=== PATIENT | female | born 1935 | race Caucasian/White ===

== ENCOUNTER 2018-10-04 12:19 | Inpatient (IN) | payer MEDICARE ==
--- NOTE | 2018-10-04 12:49 | ED Physician Chart ---
ED Chief Complaint/HPI - Patient Information Date Seen:: 10/04/18 Time Seen:: 12:30 Chief Complaint:: Cough History of Present Illness:: onset x 3 days of fever, cough, and congestion; no report of trauma, H/As, neck pain, C/P, SOB, Abd. Pain, or urinary s/s Historian:: Patient, Family Member Review:: Nurse's Note Reviewed, Old Chart Reviewed ED Review of Systems - Review of Systems General/Constitutional: Fever, No chills, No weight loss, No weakness, No diaphoresis, No edema, No loss of appetite Skin: No skin lesions, No rash, No bruising Head: No headache, No light-headedness Eyes: No loss of vision, No pain, No diplopia ENT: No earache, No nasal drainage, No sore throat, No tinnitus Neck: No neck pain, No swelling, No thyromegaly, No stiffness, No mass noted Cardio Vascular: No chest pain, No palpitations, No PND, No orthopnea, No edema Pulmonary: No SOB, Cough, No sputum, No wheezing GI: No nausea, No vomiting, No diarrhea, No pain, No melena, No hematochezia, No constipation, No hematemesis G/U: No dysuria, No frequency, No hematuria, No nacturia Crab Steamer: No vaginal discharge, No abnormal vaginal bleed, No contraction Musculoskeletal: No bone or joint pain, No back pain, No muscle pain Endocrine: No polyuria, No polydipsia Psychiatric: No prior psych history, No depression, No anxiety, No suicidal ideation, No homicidal ideation, No auditory hallucination, No visual hallucination Hematopoietic: No bruising, No lymphadenopathy Allergic/Immuno: No urticaria, No angioedema Neurological: No syncope, No focal symptoms, No weakness, No paresthesia, No headache, No seizure, No dizziness, No confusion, No vertigo ED Past Medical History - Past Medical History Obtainable: Yes Past Medical History: HTN, CHF, Asthma/COPD, Dyslipidemia Family History: HTN Social History: Non Smoker, No Alcohol, No Drug Use, Surgical History: Appendectomy, Hysterectomy Psychiatricy History: None Medication: Reviewed Family Medical History - Family Member Mother History Unknown: Yes ED Physical Exam - Physical Examination General/Constitutional: Awake, Well-developed, well-nourished, Alert, No distress, GCS 15, Non-toxic appearing, Ambulatory Head: Atraumatic Eyes: Lids, conjuctiva normal, PERRL, EOMI Skin: Nl inspection, No rash, No skin lesions, No ecchymosis, Well hydrated, No lymphadenopathy ENMT: External ears, nose nl, TM canals nl, Nasal exam nl, Lips, teeth, gums nl , Oropharynx nl, Tonsils nl Neck: Nontender, Full ROM w/o pain, No JVD, No nuchal rigidity, No bruit, No mass, No stridor Respiratory: Nl effort/Exclusion, Clear to Auscultation, No Wheeze/Rhonchi/Rales Cardio Vascular: RRR, No murmur, gallop, rubs, NL S1 S2, Carotid/Femoral/Distal pulses equal bilaterally GI: No tenderness/rebounding/guarding, No organomegaly, No hernia, Normal BS's, Nondistended, No mass/bruits, No McBurney tenderness : No CVA tenderness Extremities: No tenderness or effusion, Full ROM, normal strength in all extremities, No edema, Normal digits & nails Neuro/Psych: Alert/oriented, DTR's symmetric, Normal sensory exam, Normal motor strength, Judgement/insight normal, Mood normal, Normal gait, No focal deficits Misc: Normal back, No paraspinal tenderness ED Labs/Radiology/EKG Results - Lab Results Comments:: Reviewed - Radiology Results Comments:: CXR: + LLL Infiltrate; COPD - EKG Interpretations EKG Time:: 13:00 Rate & Rhythm: 108; ST Comments:: non-specific st-t changes ED Septic Shock - . Is Septic Shock (SBP<90, OR Lactate>4 mmol\L) present?: No ED Reassessment (Disposition) - Reassessment Reassessment Condition:: Improved - Diagnosis Diagnosis:: Cough; PNA; Tachycardia; Dehydration; Hyponatremia; HTN - Aftercare/Follow up Instructions Aftercare/Follow-Up Instructions:: Counseled pt regarding lab results/diagnosis & need follow up, Counseled pt & family regarding lab results/diagnosis & need follow up - Patient Disposition Discharge/Transfer:: Acute Care w/in this hosp Accepting Physician:: Dr. Friedman Time Called:: 1415 Time Responded:: 14:15 Admitted to:: Telemetry Spoke to:: Dr. Friedman Admitting Medical Physician:: Dr. Friedman Condition at Disposition:: Stable, Improved
[2018-10-04] MEDS ORDERED: Levofloxacin 500mg/100mL 500 MG/100 ML BAG IV ONE ×2 (12:53→13:01)
--- NOTE | 2018-10-04 13:09 | Diagnostic Imaging Report ---
Portable chest x-ray HISTORY: Pain The overall heart size appears normal. Atherosclerotic calcification seen in the aorta. Allowing for a poor inspiration, no acute focal pulmonary processes are seen. No hilar or mediastinal abnormalities. There is questionable deformity involving the anterior lateral aspect of the left seventh rib. Dedicated left rib radiographs provide additional detail. IMPRESSION: 1. Allowing for a poor inspiration, no acute focal pulmonary processes 2. Atherosclerotic vascular changes 3. Questionable deformity involving the anterior lateral aspect of left seventh rib. Dedicated rib radiographs would provide additional detail.
[2018-10-04 13:17] LABS: % EOSINOPHILS 1.7 % (0.0-5.0); % LYMPHOCYTES 21.6 % (20.0-50.0); % MONOCYTES 3.2 % (2.0-10.0); % NEUTROPHILS 72.5 % (40.0-80.0); BASOPHILE ABSOLUTE 0.1 Th/cumm (0-0.2); EOSINOPHILE ABSOLUTE 0.2 Th/cmm (0.1-0.4); HEMOGLOBIN 13.4 gm/dL (12-16); LYMPHOCYTE ABSOLUTE 2.3 Th/cmm (1.5-3.0); MEAN CORPUSCULAR HEMOGLOBIN 28.1 pg (27.0-31.0); MEAN CORPUSCULAR HGB CONC 32.7 pg (28.0-36.0); MEAN PLATELET VOLUME 7.3 fl; MONOCYTE ABSOLUTE 0.3 Th/cmm (0.3-1.0); NEUTROPHILE ABSOLUTE 7.6 Th/cmm (1.8-8.0); PLATELET COUNT 395 Th/cmm (150-400); RED BLOOD COUNT 4.77 Mil/cmm (3.80-5.20); RED CELL DISTRIBUTION WIDTH 14.5 % (11.5-20.0); WHITE BLOOD COUNT 10.5 Th/cmm (4.8-10.8)
[2018-10-04 13:30] LABS: INR 0.94 (0.5-1.4); PROTHROMBIN TIME (TEST) 9.8 SECONDS (9.5-11.5)
[2018-10-04 13:31] LABS: ALB/GLOB RATIO 1.1 (1.0-1.8); ALBUMIN 3.8 gm/dL (3.7-5.3); ALKALINE PHOSPHATASE 63 U/L (34-104); ANION GAP 12.7 (7.0-16.0); BILIRUBIN,TOTAL 0.4 mg/dL (0.3-1.0); BUN - UREA NITROGEN 13 mg/dL (7-25); CALCIUM SERUM 9.9 mg/dL (8.6-10.3); CARBON DIOXIDE 25.4 mEq/L (21.0-31.0); CHLORIDE 98 mEq/L (98-107); CREATININE - SERUM 0.7 mg/dL (0.6-1.2); CREATININE KINASE 26 U/L (30-223); GLUCOSE 123 mg/dL (70-105); POTASSIUM SERUM 4.1 mEq/L (3.5-5.1); SGOT 14 U/L (13-39); SGPT/ALT 12 U/L (7-52); SODIUM SERUM 132 mEq/L (136-145); TOTAL PROTEIN,SERUM 7.2 gm/dL (6.0-8.3)
[2018-10-04 13:32] LABS: TROP I 0.01 ng/mL (0.01-0.05)
[2018-10-04] MEDS: D5-0.9%NS 1,000 ML IV SCH (17:49)
[2018-10-04] MEDS: cefTRIAXone 1 GM in Sodium Chloride 0.9% 50 ML IV SCH (17:49)
[2018-10-04] MEDS: Azithromycin 250 MG in Sodium Chloride 0.9% 250 ML IV SCH (19:05)
[2018-10-05 05:26] LABS: EOSINOPHILE ABSOLUTE 0.2 Th/cmm (0.1-0.4); HEMOGLOBIN 12.1 gm/dL (12-16); MEAN PLATELET VOLUME 7.4 fl; RED CELL DISTRIBUTION WIDTH 14.6 % (11.5-20.0)
[2018-10-05 05:39] LABS: % BASOPHILS 0.4 % (0.0-2.0); % EOSINOPHILS 1.4 % (0.0-5.0); % LYMPHOCYTES 19.8 % (20.0-50.0); % MONOCYTES 12.3 % (2.0-10.0); % NEUTROPHILS 66.1 % (40.0-80.0); BASOPHILE ABSOLUTE 0.1 Th/cumm (0-0.2); HEMATOCRIT 36.3 % (41.0-60); LYMPHOCYTE ABSOLUTE 2.6 Th/cmm (1.5-3.0); MEAN CELL VOLUME 85.3 fl (81-100); MEAN CORPUSCULAR HEMOGLOBIN 28.4 pg (27.0-31.0); MEAN CORPUSCULAR HGB CONC 33.4 pg (28.0-36.0); MONOCYTE ABSOLUTE 1.6 Th/cmm (0.3-1.0); NEUTROPHILE ABSOLUTE 8.5 Th/cmm (1.8-8.0); PLATELET COUNT 352 Th/cmm (150-400); RED BLOOD COUNT 4.25 Mil/cmm (3.80-5.20)
[2018-10-05 06:07] LABS: ALB/GLOB RATIO 1.2 (1.0-1.8); ALBUMIN 3.1 gm/dL (3.7-5.3); ALKALINE PHOSPHATASE 51 U/L (34-104); ANION GAP 11.9 (7.0-16.0); BILIRUBIN,TOTAL 0.7 mg/dL (0.3-1.0); BUN - UREA NITROGEN 10 mg/dL (7-25); CALCIUM SERUM 9.3 mg/dL (8.6-10.3); CARBON DIOXIDE 24.8 mEq/L (21.0-31.0); CHLORIDE 104 mEq/L (98-107); CREATININE - SERUM 0.6 mg/dL (0.6-1.2); GLUCOSE 126 mg/dL (70-105); POTASSIUM SERUM 3.7 mEq/L (3.5-5.1); SGOT 13 U/L (13-39); SGPT/ALT 10 U/L (7-52); SODIUM SERUM 137 mEq/L (136-145); TOTAL PROTEIN,SERUM 5.8 gm/dL (6.0-8.3)
[2018-10-05 10:39] LABS: URINE SOURCE MIDSTREAM
[2018-10-05 10:41] LABS: URINE BILIRUBIN NEGATIVE (NEGATIVE); URINE BLOOD NEGATIVE (NEGATIVE); URINE GLUCOSE (UA) NEGATIVE (NEGATIVE); URINE KETONE NEGATIVE (NEGATIVE); URINE LEUKOCYTE ESTERASE NEGATIVE (NEGATIVE); URINE NITRATE NEGATIVE (NEGATIVE); URINE PH 7.5 (4.6 - 8.0); URINE PROTEIN NEGATIVE (NEGATIVE); URINE UROBILINOGEN 0.2 E.U./dL (0.2 - 1.0)
[2018-10-05 10:52] LABS: URINE CLARITY CLEAR (CLEAR); URINE COLOR YELLOW; URINE MICROSCOPIC INDICATED? YES
[2018-10-05 10:53] LABS: URINE BACTERIA FEW /hpf (NONE SEEN); URINE EPITHELIAL CELLS RARE /lpf (FEW); URINE RBC NONE SEEN /hpf (0-5); URINE WBC NONE SEEN /hpf (0-5)
[2018-10-05] MEDS: cefTRIAXone 1 GM in Sodium Chloride 0.9% 50 ML IV SCH (16:20)
[2018-10-05] MEDS ORDERED: BUSPIRONE HCL 15 MG PO SCH (17:00)
[2018-10-05] MEDS: Azithromycin 250 MG in Sodium Chloride 0.9% 250 ML IV SCH (17:48)
--- NOTE | 2018-10-05 18:10 | History & Physical ---
ADMIT DATE: 10/05/[address] Friedman. CHIEF COMPLAINT: Cough. HISTORY OF PRESENT ILLNESS: This is an 83-year-old female who has a 3-day history of cough and congestion associated with fever. PAST MEDICAL HISTORY: Hypertension, CHF, COPD, asthma, dyslipidemia. FAMILY HISTORY: Noncontributory. SOCIAL HISTORY: The patient denies any alcohol or illicit drug usage, tobacco smoking. PAST SURGICAL HISTORY: Appendectomy, hysterectomy. MEDICATIONS: See medication list. REVIEW OF SYSTEMS: GENERAL: Denies any fever and chills. CARDIOVASCULAR: Denies chest pain. RESPIRATORY: Complains of cough. Denies any shortness of breath. GASTROINTESTINAL: Denies nausea, vomiting, abdominal pain. GENITOURINARY: Denies increased frequency. NEUROLOGIC: No headaches, seizures, or syncope. All systems are reviewed and are negative. PHYSICAL EXAMINATION: GENERAL: The patient is well developed, well nourished, in no apparent distress. VITAL SIGNS: Temperature 98, heart rate 113, blood pressure 156/80, respirations 18, O2 95%. HEENT: Head: Normocephalic, atraumatic. NECK: Supple. No mass. LUNGS: Clear bilaterally. HEART: Regular rate and rhythm. ABDOMEN: Soft, nontender. LABORATORY DATA: WBC 13.0, H and H 12.1 and 36.3, platelet of 352. Sodium 137, potassium 2.7, chloride 104, BUN 10, creatinine 0.6. DIAGNOSTICS: The patient had a chest x-ray done and impression is allowing for poor inspiration, acute focal pulmonary process, atherosclerotic vascular changes, questionable deformity involving anterior lateral aspect of the left seventh rib. ASSESSMENT: Pneumonia, acute dehydration, hypertension, history of congestive heart failure, possible chronic obstructive pulmonary disease exacerbation, dyslipidemia. PLAN: We will get Infectious Disease on the case. We will give the patient IV antibiotics of Zithromax and Rocephin. We will get followup labs for tomorrow morning. We will continue to monitor this patient. JOB# [id number]
[2018-10-05] MEDS: D5-0.9%NS 1,000 ML IV SCH (18:43)
[2018-10-06 06:33] LABS: % BASOPHILS 0.5 % (0.0-2.0); % EOSINOPHILS 2.7 % (0.0-5.0); % LYMPHOCYTES 26.7 % (20.0-50.0); % MONOCYTES 11.3 % (2.0-10.0); % NEUTROPHILS 58.8 % (40.0-80.0); BASOPHILE ABSOLUTE 0.1 Th/cumm (0-0.2); EOSINOPHILE ABSOLUTE 0.3 Th/cmm (0.1-0.4); HEMATOCRIT 38.3 % (41.0-60); HEMOGLOBIN 12.9 gm/dL (12-16); MEAN CORPUSCULAR HEMOGLOBIN 28.6 pg (27.0-31.0); MEAN CORPUSCULAR HGB CONC 33.7 pg (28.0-36.0); MEAN PLATELET VOLUME 7.5 fl; MONOCYTE ABSOLUTE 1.3 Th/cmm (0.3-1.0); NEUTROPHILE ABSOLUTE 6.5 Th/cmm (1.8-8.0); PLATELET COUNT 351 Th/cmm (150-400); RED BLOOD COUNT 4.51 Mil/cmm (3.80-5.20); RED CELL DISTRIBUTION WIDTH 14.6 % (11.5-20.0); WHITE BLOOD COUNT 11.2 Th/cmm (4.8-10.8)
[2018-10-06 06:40] LABS: ANION GAP 10.3 (7.0-16.0); BUN - UREA NITROGEN 10 mg/dL (7-25); CALCIUM SERUM 9.7 mg/dL (8.6-10.3); CARBON DIOXIDE 28.2 mEq/L (21.0-31.0); CHLORIDE 101 mEq/L (98-107); CREATININE - SERUM 0.6 mg/dL (0.6-1.2); GLUCOSE 111 mg/dL (70-105); POTASSIUM SERUM 3.5 mEq/L (3.5-5.1); SODIUM SERUM 136 mEq/L (136-145)
[2018-10-06] MEDS ORDERED: RALOXIFENE HCL 60 MG PO SCH (09:00)
[2018-10-06] MEDS ORDERED: Non-Formulary Item 1 EA (Potassium Chloride [Potassium Chloride] 20 MEQ) PO SCH (09:00)
[2018-10-06] MEDS: D5-0.9%NS 1,000 ML IV SCH ×2 (09:28→09:29)
[2018-10-06] MEDS: Potassium Chloride 20 mEq ER Tab PO SCH (09:28)
--- NOTE | 2018-10-06 15:26 | Internal Medicine Prog Note ---
Internal Medicine Subjective - Subjective Service Date: 10/06/18 Patient is:: awake, in bed Patient Complaints of:: pain with urination (history of cad.), other (hx of ) Per staff patient has:: no adverse event, no episodes of fall Internal Medicine Objective - Results Result Diagrams: 10/06/18 05:25 10/06/18 05:25 Recent Labs: Laboratory Last Values WBC 11.2 Th/cmm (4.8-10.8) H 10/06/18 05:25 RBC 4.51 Mil/cmm (3.80-5.20) 10/06/18 05:25 Hgb 12.9 gm/dL (12-16) 10/06/18 05:25 Hct 38.3 % (41.0-60) L 10/06/18 05:25 MCV 85.0 fl (81-100) 10/06/18 05:25 MCH 28.6 pg (27.0-31.0) 10/06/18 05:25 MCHC Differential 33.7 pg (28.0-36.0) 10/06/18 05:25 RDW 14.6 % (11.5-20.0) 10/06/18 05:25 Plt Count 351 Th/cmm (150-400) 10/06/18 05:25 MPV 7.5 fl 10/06/18 05:25 Neutrophils % 58.8 % (40.0-80.0) 10/06/18 05:25 Lymphocytes % 26.7 % (20.0-50.0) 10/06/18 05:25 Monocytes % 11.3 % (2.0-10.0) H 10/06/18 05:25 Eosinophils % 2.7 % (0.0-5.0) 10/06/18 05:25 Basophils % 0.5 % (0.0-2.0) 10/06/18 05:25 PT 9.8 SECONDS (9.5-11.5) 10/04/18 13:05 INR 0.94 (0.5-1.4) 10/04/18 13:05 PTT (Actin FS) 26.0 SECONDS (26.0-38.0) 10/04/18 13:05 Sodium 136 mEq/L (136-145) 10/06/18 05:25 Potassium 3.5 mEq/L (3.5-5.1) 10/06/18 05:25 Chloride 101 mEq/L (98-107) 10/06/18 05:25 Carbon Dioxide 28.2 mEq/L (21.0-31.0) 10/06/18 05:25 Anion Gap 10.3 (7.0-16.0) 10/06/18 05:25 BUN 10 mg/dL (7-25) 10/06/18 05:25 Creatinine 0.6 mg/dL (0.6-1.2) 10/06/18 05:25 Est GFR ( Amer) TNP 10/06/18 05:25 Est GFR (Non-Af Amer) TNP 10/06/18 05:25 BUN/Creatinine Ratio 16.7 10/06/18 05:25 Glucose 111 mg/dL (70-105) H 10/06/18 05:25 POC Glucose 113 MG/DL (70 - 105) H 10/04/18 16:37 Whole Bld Lactic Acid 1.09 mmol/L (0.60-1.99) 10/04/18 13:05 Calcium 9.7 mg/dL (8.6-10.3) 10/06/18 05:25 Total Bilirubin 0.7 mg/dL (0.3-1.0) 10/05/18 05:05 AST 13 U/L (13-39) 10/05/18 05:05 ALT 10 U/L (7-52) 10/05/18 05:05 Alkaline Phosphatase 51 U/L (34-104) 10/05/18 05:05 Creatine Kinase 26 U/L (30-223) L 10/04/18 13:05 Troponin I 0.01 ng/mL (0.01-0.05) 10/04/18 13:05 Total Protein 5.8 gm/dL (6.0-8.3) L 10/05/18 05:05 Albumin 3.1 gm/dL (3.7-5.3) L 10/05/18 05:05 Globulin 2.7 gm/dL 10/05/18 05:05 Albumin/Globulin Ratio 1.2 (1.0-1.8) 10/05/18 05:05 Urine Source MIDSTREAM 10/05/18 10:35 Urine Color YELLOW 10/05/18 10:35 Urine Clarity CLEAR (CLEAR) 10/05/18 10:35 Urine pH 7.5 (4.6 - 8.0) 10/05/18 10:35 Ur Specific [place] 1.015 (1.005-1.030) 10/05/18 10:35 Urine Protein NEGATIVE mg/dL (NEGATIVE) 10/05/18 10:35 Urine Glucose (UA) NEGATIVE mg/dL (NEGATIVE) 10/05/18 10:35 Urine Ketones NEGATIVE mg/dL (NEGATIVE) 10/05/18 10:35 Urine Blood NEGATIVE (NEGATIVE) 10/05/18 10:35 Urine Nitrate NEGATIVE (NEGATIVE) 10/05/18 10:35 Urine Bilirubin NEGATIVE (NEGATIVE) 10/05/18 10:35 Urine Urobilinogen 0.2 E.U./dL (0.2 - 1.0) 10/05/18 10:35 Ur Leukocyte Esterase NEGATIVE (NEGATIVE) 10/05/18 10:35 Urine RBC NONE SEEN /hpf (0-5) 10/05/18 10:35 Urine WBC NONE SEEN /hpf (0-5) 10/05/18 10:35 Ur Epithelial Cells RARE /lpf (FEW) 10/05/18 10:35 Urine Bacteria FEW /hpf (NONE SEEN) 10/05/18 10:35 - Physical Exam Vitals and I&O: Vital Signs Temp 97.2 F 10/06/18 11:58 Pulse 96 10/06/18 11:58 Resp 19 10/06/18 11:58 BP 146/77 10/06/18 11:58 Pulse Ox 96 10/06/18 11:58 Intake & Output 10/05/18 10/06/18 10/06/18 18:59 06:59 18:59 Intake Total 2850 240 1001.25 Balance 2850 240 1001.25 Weight (lbs) 79.379 kg 79.379 kg Intake: Intake, IV Amount 1050 1001.25 D5-0.9%Ns 1,000 ml @ 75 1000 1001.25 mls/hr IV .[id number] [facility] Rx #:[id number] cefTRIAXone 1 gm In 50 Sodium Chloride 0.9% 50 ml @ 100 mls/hr IV Q24HR [facility] Rx#:[id number] Oral 1800 240 Other: # Voids 5 4 # Bowel Movements 1 Weight Source Bedscale Bedscale Active Medications: Current Medications Buspirone HCl (Buspar) 15 mg PO BID [facility] Stop: 12/04/18 16:59 Last Admin: 10/06/18 09:28 Dose: 15 mg Dextrose/Sodium Chloride (D5-0.9%Ns) 1,000 mls @ 75 mls/hr IV .[id number] [facility] Stop: 12/03/18 16:59 Last Admin: 10/06/18 09:29 Dose: 75 mls/hr Miscellaneous (Raloxifene Hcl [Raloxifene Hcl]) 60 mg PO DAILY [facility] Stop: 12/05/18 08:59 Last Admin: 10/06/18 09:32 Dose: 60 mg Potassium Chloride (Klor-Con) 20 meq PO DAILY [facility] Stop: 12/05/18 08:59 Last Admin: 10/06/18 09:28 Dose: 20 meq Triamterene (Dyrenium) 50 mg PO DAILY [facility] Stop: 12/05/18 08:59 Physical Exam: 83 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 General: weak HEENT: NC/AT Neck: Supple, No JVD Lungs: CTAB Cardiovascular: RRR, Normal S1 Abdomen: soft, non-tender Extremities: clear Neurological: no change Internal Medicine Assmt/Plan - Assessment Assessment: HTN. Diabetes. Demetia. AsthmCHF. CAD. - Plan Plan: Continuation of care Continue present meds as directed Monitor lab, vitals and diet. Fall precaution. Continue present treatment Nutritional Asmnt/Malnutr-PDOC - Dietary Evaluation Malnutrition Findings (Please click <Entered> for more info): Nutritional Asmnt/Malnutrition Start: 10/05/18 17: 05 Text: Status: Complete Freq: Protocol: Document 10/05/18 17:05 LCHENG (Rec: 10/05/18 17:08 LCHENG [email or web address]) Nutritional Asmnt/Malnutrition Patient General Information Nutritional Screening High Risk Diagnosis PNA, dehydration Pertinent Medical Hx/Surgical Hx HTN, CHF, asthma/OPD, dyslipdiemia Subjective Information Pt seen sitting up on bed, having lunch, alert. Pt stated good appetite always. food preference provided to RD. Current Diet Order/ Nutrition Support 2gm Na Pertinent Medications D5-0.9%nsm, kcl Pertinent Labs 5/2 Glucose 126 Nutritional Hx/Data Height 1.57 m Height (Calculated Centimeters) 157.5 Current Weight (lbs) 79.379 kg Weight (Calculated Kilograms) 79.4 Weight (Calculated Grams) 38163.7 [place] Body Weight 110 Body Mass Index (BMI) 32.0 Weight Status Obese GI Symptoms GI Symptoms None Last BM 5/2 x 2 Difficult in: None Skin Integrity/Comment: intact Current %PO Good (75-100%) Estimated Nutritional Goals BEE in Kcals: Adj wt of IBW Calories/Kcals/Kg 25-30 Kcals Calculated 5559-1330 Protein: Adj wt of IBW Protein g/k Protein Calculated 57 Fluid: ml 1425-1710ml (1ml/kcal) Nutritional Problem No current Nutrition Prob Problem n/A Malnutrition Alert Is there a minimum of two criteria No selected? Query Text:Check all the applicable criteria. A minimum of two criteria are recommended for diagnosis of either severe or non-severe malnutrition. Malnutrition Related to Morbid Obesity Malnutrition related to morbid obesity No Intervention/Recommendation Comments 1. Continue with 2gm Na diet as ordered. 2. Monitor PO intake, wt, labs and skin integrity 3. F/U as moderate risk in 3-5 days Expected Outcomes/Goals Expected Outcomes/Goals 1. PO intake to meet at least 75% of nutritional needs. 2. Wt stability, skin to remain intact, labs to approach WNL.
--- NOTE | 2018-10-07 05:35 | Consultation ---
DATE OF CONSULTATION: 10/06/2018 INFECTIOUS DISEASE CONSULTATION REFERRING PHYSICIAN: Dr. Friedman. REASON FOR CONSULTATION: Leukocytosis. HISTORY OF PRESENT ILLNESS: The patient is an 83-year-old female with a past medical history of hypertension, CHF, asthma, COPD, dyslipidemia, brought in to the ER for fever, cough, and congestion. On initial evaluation, the patient's temperature was 97.7 degrees Fahrenheit and WBC count was 10,500. It went up to 13,000 yesterday, so ID consult was called for further antibiotic management. Meanwhile, the patient was receiving ceftriaxone. ALLERGIES: NKDA. MEDICATIONS: As per medication reconciliation sheet. Antibiotic sandhu, the patient is on Rocephin. PAST MEDICAL HISTORY: Includes hypertension, CHF, COPD, asthma, dyslipidemia. FAMILY HISTORY: Noncontributory. SOCIAL HISTORY: The patient denies any smoking, alcohol or drug use. PAST SURGICAL HISTORY: Appendectomy, hysterectomy. REVIEW OF SYSTEMS: GENERAL: The patient denies any fever or chills. HEENT: No diplopia, no photophobia, no sore throat. RESPIRATORY: No cough, no shortness of breath. CARDIOVASCULAR: No chest pain, no palpitation. GASTROINTESTINAL: No nausea, no vomiting, no diarrhea, no constipation. GENITOURINARY: No dysuria. NEUROLOGIC: No headache, no dizziness, no focal weakness. PHYSICAL EXAMINATION: CURRENT VITAL SIGNS: Show temperature 97.2, pulse 96, respiration 19, blood pressure 146/77. GENERAL: The patient is comfortable, lying in the bed, not in acute distress. HEENT: Head is normocephalic, atraumatic. Oral cavity moist, pink tongue. Eyes: No pallor, no icterus. PERRLA, EOMI. NECK: Supple, no JVD, no carotid bruit. Trachea in midline. CHEST: Bilateral breath sounds. No crackles or wheezing. CARDIOVASCULAR: S1, S2 within normal limits. Regular rhythm. No murmur, no gallop. ABDOMEN: Soft, nontender, nondistended. Bowel sounds present. EXTREMITIES: No cyanosis, no clubbing, no edema. NEUROLOGICAL: Alert, awake, oriented x 3. No focal deficit. LABORATORY DATA: Current lab shows WBC count is 11,200, hemoglobin 12.9, hematocrit 38.3, platelets are 351,000, neutrophils 58.8%. Sodium 136, potassium 3.5, chloride 101, bicarb is 28, BUN is 10, creatinine 0.6, glucose 111. IMPRESSION: 1. Leukocytosis. Blood culture negative. Chest x-ray is negative for any infiltrate. Urinalysis shows no pyuria, no bacteriuria. 2. Hypertension. 3. Congestive heart failure. 4. Asthma. 5. Dyslipidemia. RECOMMENDATIONS: May discontinue antibiotic and may discharge from ID point of view. [facility]# [id number]
[2018-10-07] MEDS: Potassium Chloride 20 mEq ER Tab PO SCH (08:53)
[2018-10-08] MEDS: Potassium Chloride 20 mEq ER Tab PO SCH (08:52)
[2018-10-08] MEDS ORDERED: Guaifenesin DM 10 ML UDC PO PRN (10:53)
--- NOTE | 2018-10-08 12:10 | Internal Medicine Prog Note ---
Internal Medicine Subjective - Subjective Patient seen and examined:: chart reviewed Patient is:: awake, in bed, other (no distress) Patient Complaints of:: pain with urination (history of cad.), other (hx of ) Per staff patient has:: no adverse event, no episodes of fall Internal Medicine Objective - Results Result Diagrams: 10/06/18 05:25 10/06/18 05:25 Recent Labs: Laboratory Last Values WBC 11.2 Th/cmm (4.8-10.8) H 10/06/18 05:25 RBC 4.51 Mil/cmm (3.80-5.20) 10/06/18 05:25 Hgb 12.9 gm/dL (12-16) 10/06/18 05:25 Hct 38.3 % (41.0-60) L 10/06/18 05:25 MCV 85.0 fl (81-100) 10/06/18 05:25 MCH 28.6 pg (27.0-31.0) 10/06/18 05:25 MCHC Differential 33.7 pg (28.0-36.0) 10/06/18 05:25 RDW 14.6 % (11.5-20.0) 10/06/18 05:25 Plt Count 351 Th/cmm (150-400) 10/06/18 05:25 MPV 7.5 fl 10/06/18 05:25 Neutrophils % 58.8 % (40.0-80.0) 10/06/18 05:25 Lymphocytes % 26.7 % (20.0-50.0) 10/06/18 05:25 Monocytes % 11.3 % (2.0-10.0) H 10/06/18 05:25 Eosinophils % 2.7 % (0.0-5.0) 10/06/18 05:25 Basophils % 0.5 % (0.0-2.0) 10/06/18 05:25 PT 9.8 SECONDS (9.5-11.5) 10/04/18 13:05 INR 0.94 (0.5-1.4) 10/04/18 13:05 PTT (Actin FS) 26.0 SECONDS (26.0-38.0) 10/04/18 13:05 Sodium 136 mEq/L (136-145) 10/06/18 05:25 Potassium 3.5 mEq/L (3.5-5.1) 10/06/18 05:25 Chloride 101 mEq/L (98-107) 10/06/18 05:25 Carbon Dioxide 28.2 mEq/L (21.0-31.0) 10/06/18 05:25 Anion Gap 10.3 (7.0-16.0) 10/06/18 05:25 BUN 10 mg/dL (7-25) 10/06/18 05:25 Creatinine 0.6 mg/dL (0.6-1.2) 10/06/18 05:25 Est GFR ( Amer) TNP 10/06/18 05:25 Est GFR (Non-Af Amer) TNP 10/06/18 05:25 BUN/Creatinine Ratio 16.7 10/06/18 05:25 Glucose 111 mg/dL (70-105) H 10/06/18 05:25 POC Glucose 113 MG/DL (70 - 105) H 10/04/18 16:37 Whole Bld Lactic Acid 1.09 mmol/L (0.60-1.99) 10/04/18 13:05 Calcium 9.7 mg/dL (8.6-10.3) 10/06/18 05:25 Total Bilirubin 0.7 mg/dL (0.3-1.0) 10/05/18 05:05 AST 13 U/L (13-39) 10/05/18 05:05 ALT 10 U/L (7-52) 10/05/18 05:05 Alkaline Phosphatase 51 U/L (34-104) 10/05/18 05:05 Creatine Kinase 26 U/L (30-223) L 10/04/18 13:05 Troponin I 0.01 ng/mL (0.01-0.05) 10/04/18 13:05 Total Protein 5.8 gm/dL (6.0-8.3) L 10/05/18 05:05 Albumin 3.1 gm/dL (3.7-5.3) L 10/05/18 05:05 Globulin 2.7 gm/dL 10/05/18 05:05 Albumin/Globulin Ratio 1.2 (1.0-1.8) 10/05/18 05:05 Urine Source MIDSTREAM 10/05/18 10:35 Urine Color YELLOW 10/05/18 10:35 Urine Clarity CLEAR (CLEAR) 10/05/18 10:35 Urine pH 7.5 (4.6 - 8.0) 10/05/18 10:35 Ur Specific [place] 1.015 (1.005-1.030) 10/05/18 10:35 Urine Protein NEGATIVE mg/dL (NEGATIVE) 10/05/18 10:35 Urine Glucose (UA) NEGATIVE mg/dL (NEGATIVE) 10/05/18 10:35 Urine Ketones NEGATIVE mg/dL (NEGATIVE) 10/05/18 10:35 Urine Blood NEGATIVE (NEGATIVE) 10/05/18 10:35 Urine Nitrate NEGATIVE (NEGATIVE) 10/05/18 10:35 Urine Bilirubin NEGATIVE (NEGATIVE) 10/05/18 10:35 Urine Urobilinogen 0.2 E.U./dL (0.2 - 1.0) 10/05/18 10:35 Ur Leukocyte Esterase NEGATIVE (NEGATIVE) 10/05/18 10:35 Urine RBC NONE SEEN /hpf (0-5) 10/05/18 10:35 Urine WBC NONE SEEN /hpf (0-5) 10/05/18 10:35 Ur Epithelial Cells RARE /lpf (FEW) 10/05/18 10:35 Urine Bacteria FEW /hpf (NONE SEEN) 10/05/18 10:35 - Physical Exam Vitals and I&O: Vital Signs Temp 97.7 F 10/08/18 11:36 Pulse 108 10/08/18 11:36 Resp 18 10/08/18 11:36 BP 121/74 10/08/18 11:36 Pulse Ox 96 10/08/18 11:36 Intake & Output 10/07/18 10/08/18 10/08/18 18:59 06:59 18:59 Intake Total 1100 Balance 1100 Weight (lbs) 79.379 kg Intake: Oral 1100 Other: # Voids 8 # Bowel Movements 1 Weight Source Bedscale Active Medications: Current Medications Buspirone HCl (Buspar) 15 mg PO BID [facility] Stop: 12/04/18 16:59 Last Admin: 10/08/18 08:51 Dose: 15 mg Carvedilol (Coreg) 25 mg PO DAILY [facility] Stop: 12/08/18 08:59 Guaifenesin/Dextromethorphan (Robitussin Dm) 10 ml PO Q6HR PRN PRN Reason: Cough Stop: 12/07/18 10:52 Dextrose/Sodium Chloride (D5-0.9%Ns) 1,000 mls @ 75 mls/hr IV .[id number] [facility] Stop: 12/03/18 16:59 Last Infusion: 10/06/18 17:56 Dose: 0 mls/hr Lorazepam (Ativan) 1 mg PO Q6HR PRN; Protocol PRN Reason: Agitation Stop: 12/06/18 22:17 Miscellaneous (Raloxifene Hcl [Raloxifene Hcl]) 60 mg PO DAILY [facility] Stop: 12/05/18 08:59 Last Admin: 10/06/18 09:32 Dose: 60 mg Potassium Chloride (Klor-Con) 20 meq PO DAILY [facility] Stop: 12/05/18 08:59 Last Admin: 10/08/18 08:52 Dose: 20 meq Triamterene (Dyrenium) 50 mg PO DAILY [facility] Stop: 12/05/18 08:59 Physical Exam: 83 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 General: weak HEENT: NC/AT Neck: Supple, No JVD Lungs: CTAB Cardiovascular: RRR, Normal S1 Abdomen: soft, non-tender Extremities: clear Neurological: no change Internal Medicine Assmt/Plan - Assessment Assessment: HTN. Diabetes. Demetia. AsthmCHF. CAD. - Plan Plan: Continuation of care Continue present meds as directed Monitor lab, vitals and diet. Fall precaution. Continue present treatment Nutritional Asmnt/Malnutr-PDOC - Dietary Evaluation Malnutrition Findings (Please click <Entered> for more info): Nutritional Asmnt/Malnutrition Start: 10/05/18 17: 05 Text: Status: Complete Freq: Protocol: Document 10/05/18 17:05 LCHENG (Rec: 10/05/18 17:08 LCHENG [email or web address]) Nutritional Asmnt/Malnutrition Patient General Information Nutritional Screening High Risk Diagnosis PNA, dehydration Pertinent Medical Hx/Surgical Hx HTN, CHF, asthma/OPD, dyslipdiemia Subjective Information Pt seen sitting up on bed, having lunch, alert. Pt stated good appetite always. food preference provided to RD. Current Diet Order/ Nutrition Support 2gm Na Pertinent Medications D5-0.9%nsm, kcl Pertinent Labs 5/2 Glucose 126 Nutritional Hx/Data Height 1.57 m Height (Calculated Centimeters) 157.5 Current Weight (lbs) 79.379 kg Weight (Calculated Kilograms) 79.4 Weight (Calculated Grams) 26811.7 [place] Body Weight 110 Body Mass Index (BMI) 32.0 Weight Status Obese GI Symptoms GI Symptoms None Last BM 5/2 x 2 Difficult in: None Skin Integrity/Comment: intact Current %PO Good (75-100%) Estimated Nutritional Goals BEE in Kcals: Adj wt of IBW Calories/Kcals/Kg 25-30 Kcals Calculated 7876-3013 Protein: Adj wt of IBW Protein g/k Protein Calculated 57 Fluid: ml 1425-1710ml (1ml/kcal) Nutritional Problem No current Nutrition Prob Problem n/A Malnutrition Alert Is there a minimum of two criteria No selected? Query Text:Check all the applicable criteria. A minimum of two criteria are recommended for diagnosis of either severe or non-severe malnutrition. Malnutrition Related to Morbid Obesity Malnutrition related to morbid obesity No Intervention/Recommendation Comments 1. Continue with 2gm Na diet as ordered. 2. Monitor PO intake, wt, labs and skin integrity 3. F/U as moderate risk in 3-5 days Expected Outcomes/Goals Expected Outcomes/Goals 1. PO intake to meet at least 75% of nutritional needs. 2. Wt stability, skin to remain intact, labs to approach WNL.
== END 2018-10-08 15:30 | disposition home or self-care (01) | DRG 871 ==
LOC: ER 12:19 → TELE 15:08
PROVIDERS: ADMIT Internal Medicine; ATTEND Internal Medicine
DX: A41.9 Sepsis, unspecified organism (principal); J18.9 Pneumonia, unspecified organism; E87.1 Hypo-osmolality and hyponatremia; J44.0 Chronic obstructive pulmonary disease with (acute) lower respiratory infection; E86.0 Dehydration; I50.9 Heart failure, unspecified; I11.0 Hypertensive heart disease with heart failure; E78.5 Hyperlipidemia, unspecified; Z90.49 Acquired absence of other specified parts of digestive tract; Z90.710 Acquired absence of both cervix and uterus; Z88.0 Allergy status to penicillin
CPT/HCPCS: 36415-UA; 71045-TC; 80048-TC; 80053-TC; 81001-TC; 82550-TC; 82948-90; 83605; 84484-TC; 85025-TC; 85610-TC; 85730-TC; 93005; J0456; J0696; J1956; J7042; Z7502; Z7610

== ENCOUNTER 2018-10-20 15:13 | Inpatient (IN) | payer MEDICARE ==
[2018-10-20 15:51] LABS: % BASOPHILS 0.3 % (0.0-2.0); % EOSINOPHILS 1.9 % (0.0-5.0); % LYMPHOCYTES 24.6 % (20.0-50.0); % MONOCYTES 8.1 % (2.0-10.0); % NEUTROPHILS 65.1 % (40.0-80.0); EOSINOPHILE ABSOLUTE 0.2 Th/cmm (0.1-0.4); HEMATOCRIT 39.9 % (41.0-60); HEMOGLOBIN 13.2 gm/dL (12-16); LYMPHOCYTE ABSOLUTE 2.6 Th/cmm (1.5-3.0); MEAN CELL VOLUME 85.8 fl (81-100); MEAN CORPUSCULAR HEMOGLOBIN 28.4 pg (27.0-31.0); MEAN CORPUSCULAR HGB CONC 33.1 pg (28.0-36.0); MEAN PLATELET VOLUME 7.3 fl; MONOCYTE ABSOLUTE 0.9 Th/cmm (0.3-1.0); NEUTROPHILE ABSOLUTE 6.8 Th/cmm (1.8-8.0); PLATELET COUNT 410 Th/cmm (150-400); RED BLOOD COUNT 4.64 Mil/cmm (3.80-5.20); RED CELL DISTRIBUTION WIDTH 14.6 % (11.5-20.0); WHITE BLOOD COUNT 10.5 Th/cmm (4.8-10.8)
--- NOTE | 2018-10-20 15:51 | ED Physician Chart ---
ED Chief Complaint/HPI - Patient Information Date Seen:: 10/20/18 Time Seen:: 15:38 Chief Complaint:: syncope History of Present Illness:: this is an 83 [facility] who [facility] a [facility]ope episode. she states that this is the second time but denies injury from the episode. she was evaluated at another hospital for the same symptoms. she denies head pain, chest pain and abdominal pain. she denies having seizures. Allergies:: Allergies Allergy/AdvReac Type Severity Reaction Status Date / Time Penicillins [PCN] Allergy Verified 10/04/18 12:48 Vitals:: Vital Signs - 8 hr 10/20/18 15:25 Temp 98.7 F HR 94 RR 16 BP 157/87 O2 Sat % 96 Historian:: Patient, Medical Records Review:: Nurse's Note Reviewed, Old Chart Reviewed ED Review of Systems - Review of Systems General/Constitutional: No fever, No chills, No weight loss, No weakness, No diaphoresis, No edema, No loss of appetite Skin: No skin lesions, No rash, No bruising Head: No headache, No light-headedness Eyes: No loss of vision, No pain, No diplopia ENT: No earache, No nasal drainage, No sore throat, No tinnitus Neck: No neck pain, No swelling, No thyromegaly, No stiffness, No mass noted Cardio Vascular: No chest pain, No palpitations, No PND, No orthopnea, No edema Pulmonary: No SOB, No cough, No sputum, No wheezing GI: No nausea, No vomiting, No diarrhea, No pain, No melena, No hematochezia, No constipation, No hematemesis G/U: No dysuria, No frequency, No hematuria Musculoskeletal: No bone or joint pain, No back pain, No muscle pain Endocrine: No polyuria, No polydipsia Psychiatric: No prior psych history, No depression, No anxiety, No suicidal ideation Hematopoietic: No bruising, No lymphadenopathy Allergic/Immuno: No urticaria, No angioedema Neurological: Syncope, No focal symptoms, No weakness, No paresthesia, No headache, No seizure, No dizziness, No confusion, No vertigo ED Past Medical History - Past Medical History Obtainable: Yes Past Medical History: HTN, CHF, Asthma/COPD, Dyslipidemia, Other (obesity, and pneumonia ) Family History: Other (brother has had syncope episodes) Family Medical History - Family Member Mother History Unknown: Yes ED Physical Exam - Physical Examination General/Constitutional: Awake, Well-developed, well-nourished, Alert, No distress, GCS 15, Non-toxic appearing, Ambulatory Other Gen/Cons comments:: obese Head: Atraumatic Eyes: Lids, conjuctiva normal, PERRL, EOMI Skin: Nl inspection, No rash, No skin lesions, No ecchymosis, Well hydrated, No lymphadenopathy ENMT: External ears, nose nl, Nasal exam nl, Lips, teeth, gums nl Neck: Nontender, Full ROM w/o pain, No JVD, No nuchal rigidity, No bruit, No mass, No stridor Respiratory: Nl effort/Exclusion, Clear to Auscultation, No Wheeze/Rhonchi/ Rales (bilateral rhonchi heard) Cardio Vascular: RRR, No murmur, gallop, rubs, NL S1 S2 GI: No tenderness/rebounding/guarding, No organomegaly, No hernia, Normal BS's, Nondistended, No mass/bruits, No McBurney tenderness : No CVA tenderness Extremities: No tenderness or effusion, Full ROM, normal strength in all extremities, No edema, Normal digits & nails Other Extremities comments:: weakness of all four extremities. Neuro/Psych: Alert/oriented, DTR's symmetric, Normal sensory exam, Normal motor strength, Judgement/insight normal, Mood normal, Normal gait, No focal deficits Misc: Normal back, No paraspinal tenderness ED Labs/Radiology/EKG Results - EKG Interpretations EKG Time:: 15:24 Rate & Rhythm: rate=89 Rew: right ED Assessment - Assessment General Assessment: syncope hypertension ED Septic Shock - . Is Septic Shock (SBP<90, OR Lactate>4 mmol\L) present?: No - <6hrs of presentation: Vital Signs: Vital Signs - 8 hr 10/20/18 15:25 Temp 98.7 F HR 94 RR 16 BP 157/87 O2 Sat % 96 ED Reassessment (Disposition) - Diagnosis Diagnosis:: syncope hypertension electrolyte imbalance - Patient Disposition Discharge/Transfer:: Acute Care w/in this hosp Admitted to:: Telemetry Admitting Medical Physician:: Miguelangel Friedman Condition at Disposition:: Stable
[2018-10-20 16:07] LABS: ALB/GLOB RATIO 1.2 (1.0-1.8); ALBUMIN 3.7 gm/dL (3.7-5.3); ALKALINE PHOSPHATASE 73 U/L (34-104); ANION GAP 10.5 (7.0-16.0); BILIRUBIN,TOTAL 0.4 mg/dL (0.3-1.0); BUN - UREA NITROGEN 16 mg/dL (7-25); CALCIUM SERUM 10.3 mg/dL (8.6-10.3); CHLORIDE 97 mEq/L (98-107); CREATININE - SERUM 0.8 mg/dL (0.6-1.2); GLUCOSE 114 mg/dL (70-105); POTASSIUM SERUM 4.5 mEq/L (3.5-5.1); SGOT 12 U/L (13-39); SGPT/ALT 11 U/L (7-52); SODIUM SERUM 130 mEq/L (136-145); TOTAL PROTEIN,SERUM 6.7 gm/dL (6.0-8.3)
[2018-10-20] MEDS ORDERED: Sodium Chloride 0.9% 1,000 ML IV ONE (16:18)
[2018-10-20 16:21] LABS: INR 0.96 (0.5-1.4)
[2018-10-20 16:39] LABS: CHOLESTEROL 184 mg/dL (<200); HDL -HIGH DENSITY LIPOPROTEIN 44 mg/dL (23-92); TRIGLYCERIDES 207 mg/dL (<150)
[2018-10-20 18:47] VITALS: BP 157/80
[2018-10-20 19:39] LABS: URINE BILIRUBIN NEGATIVE (NEGATIVE); URINE BLOOD NEGATIVE (NEGATIVE); URINE GLUCOSE (UA) NEGATIVE (NEGATIVE); URINE KETONE NEGATIVE (NEGATIVE); URINE LEUKOCYTE ESTERASE SMALL (NEGATIVE); URINE NITRATE NEGATIVE (NEGATIVE); URINE PH 6.5 (4.6 - 8.0); URINE PROTEIN NEGATIVE (NEGATIVE); URINE SOURCE CLEAN C; URINE UROBILINOGEN 0.2 E.U./dL (0.2 - 1.0)
[2018-10-20 19:41] LABS: URINE COLOR YELLOW
[2018-10-20 19:42] LABS: URINE CLARITY CLEAR (CLEAR); URINE MICROSCOPIC INDICATED? YES
[2018-10-20 19:44] LABS: AMPHETAMINE URINE NEGATIVE (NEGATIVE); BARBITURATES URINE NEGATIVE (NEGATIVE); BENZODIAZEPINES QUAL URINE NEGATIVE (NEGATIVE); CANNABINOID THC NEGATIVE (NEGATIVE); COCAINE METABOLITE QUAL URINE NEGATIVE (NEGATIVE); METHADONE URINE NEGATIVE (NEGATIVE); METHAMPHETAMINES QUAL URINE NEGATIVE (NEGATIVE); OPIATES (MORPHINE) QUAL. URINE NEGATIVE (NEGATIVE); PHENCYCLIDINE (PCP) URINE NEGATIVE (NEGATIVE); TRICYCLICS (TCA) QUAL. URINE NEGATIVE (NEGATIVE)
[2018-10-20 20:04] LABS: URINE BACTERIA 1+ /hpf (NONE SEEN); URINE EPITHELIAL CELLS MODERATE /lpf (FEW); URINE RBC 0-2 /hpf (0-5)
[2018-10-20] MEDS: D5-0.45NS 1,000 ML IV SCH (22:56)
[2018-10-21] MEDS ORDERED: Levofloxacin 500mg/100mL 500 MG/100 ML BAG IV SCH (01:00)
[2018-10-21] MEDS: D5-0.45NS 1,000 ML IV SCH ×3 (03:14→18:15)
[2018-10-21 05:21] LABS: EOSINOPHILE ABSOLUTE 0.3 Th/cmm (0.1-0.4); HEMOGLOBIN 12.1 gm/dL (12-16); LYMPHOCYTE ABSOLUTE 2.6 Th/cmm (1.5-3.0); MEAN CELL VOLUME 86.1 fl (81-100); MONOCYTE ABSOLUTE 0.7 Th/cmm (0.3-1.0); NEUTROPHILE ABSOLUTE 6.3 Th/cmm (1.8-8.0)
[2018-10-21 05:25] LABS: % BASOPHILS 1.8 % (0.0-2.0); % LYMPHOCYTES 25.4 % (20.0-50.0); % NEUTROPHILS 62.8 % (40.0-80.0); BASOPHILE ABSOLUTE 0.2 Th/cumm (0-0.2); HEMATOCRIT 35.8 % (41.0-60); MEAN CORPUSCULAR HGB CONC 33.6 pg (28.0-36.0); MEAN PLATELET VOLUME 7.3 fl; PLATELET COUNT 359 Th/cmm (150-400); RED BLOOD COUNT 4.16 Mil/cmm (3.80-5.20); RED CELL DISTRIBUTION WIDTH 14.6 % (11.5-20.0); WHITE BLOOD COUNT 10.1 Th/cmm (4.8-10.8)
[2018-10-21 05:40] LABS: ALB/GLOB RATIO 1.2 (1.0-1.8); ALBUMIN 3.2 gm/dL (3.7-5.3); ALKALINE PHOSPHATASE 65 U/L (34-104); ANION GAP 9.2 (7.0-16.0); BILIRUBIN,TOTAL 0.6 mg/dL (0.3-1.0); BUN - UREA NITROGEN 16 mg/dL (7-25); CALCIUM SERUM 9.7 mg/dL (8.6-10.3); CARBON DIOXIDE 25.6 mEq/L (21.0-31.0); CHLORIDE 99 mEq/L (98-107); CREATININE - SERUM 0.7 mg/dL (0.6-1.2); GLUCOSE 127 mg/dL (70-105); POTASSIUM SERUM 3.8 mEq/L (3.5-5.1); SGOT 10 U/L (13-39); SGPT/ALT 9 U/L (7-52); SODIUM SERUM 130 mEq/L (136-145); TOTAL PROTEIN,SERUM 5.9 gm/dL (6.0-8.3)
[2018-10-21] MEDS ORDERED: Non-Formulary Item 1 EA (Acetaminophen [Acetaminophen Er] 650 MG) PO PRN (09:17)
--- NOTE | 2018-10-21 09:52 | Diagnostic Imaging Report ---
CHEST X-RAY: AP view INDICATION: Cough COMPARISON: Chest x-ray 10/04/2018 FINDINGS: There is elevation of the left hemidiaphragm with slight increased left basal lung markings. There are multiple left mid to left lower rib fractures with small left effusion. No focal consolidation identified. No pneumothorax. Mild cardiomegaly is noted atherosclerosis. Degenerative changes of the spine are noted with scoliosis. IMPRESSION: Multiple age indeterminate possibly acute or subacute left rib fractures with small left effusion. No evidence of pneumothorax Increased left basal lung markings favoring atelectasis. Infiltrate is less likely Mild cardiomegaly with atherosclerosis.
--- NOTE | 2018-10-21 09:57 | Diagnostic Imaging Report ---
Head CT without intravenous contrast Indication: Fall and syncope Comparison: None Technique: Axial images were obtained from the vertex to the skull base without IV contrast. Coronal reconstructions were made. Total DLP: 674, CTDI39.6 FINDINGS: Images of the brain obtained without contrast demonstrate no evidence of an acute hemorrhage. Mild atrophy is noted. Mild white matter disease is noted. The ventricles and basal cisterns are patent. No mass effect or midline shift. Atherosclerosis is noted. There is mucosal thickening of the paranasal sinuses. No evidence of the skull fracture or focal soft tissue swelling. There are small lucencies within the skull. IMPRESSION: No evidence of acute intracranial hemorrhage. Atrophy. Mild supratentorial white matter disease which is nonspecific and may be due to chronic microvessel ischemia. Small lucencies in the skull, nonspecific, and may represent vascular structures. Note other etiologies such as multiple myeloma cannot be completely excluded. Please correlate with patient's clinical history and old exams. Consider follow-up assessment if indicated.
--- NOTE | 2018-10-21 12:26 | History and Physical ---
History of Present Illness - HPI Chief Complaint: 83 y/o female patient was brought into ER due to having an episode of syncope. HPI: 83 y/o female patient was admitted to [facility] due to having an episode of syncope. Patient has history Hypertension, COPD, CHF, Asthma, Dyslipidemia and Obesity. Patient had an ER assessment and a complete workup was done. Patient had a chest x-ray done which showed Mild Cardiomegaly with Atherosclerosis. Patient was diagnosed with Syncope, Hypertension and Electrolyte imbalance. Patient will have a [employer] consult and I will follow, treat and monitor patient. Patient will continue current treatment plan as ordered. 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.) GI: Report: No Pertinent Hx Psych: Report: No Pertinent Hx Musculoskeletal: Report: No Pertinent Hx Rheumatologic: Report: No pertinent Hx Infectious Disease: Report: No Pertinent Hx Renal/: Report: No Pertinent Hx Endocrine: Report: No Pertinent Hx Dermatology: Report: No Pertinent Hx - Past Surgical History Past Surgical History: No pertinent Hx Family Medical History - Family Member Mother History Unknown: Yes Social History Smoke: No Alcohol: None Drugs: None Lives: Detention Domestic Violence: Negative Health Maintenance Health Maintenance: Other (see chart.) - Medications Home Medications: Home Medication Medication Instructions Recorded Type Raloxifene HCl 60 mg PO DAILY 10/04/18 History Potassium Chloride ER [Klor-Con] [address] 10/08/18 Rx Triamterene [Dyrenium] 50 mg PO DAILY cap 10/08/18 Rx Acetaminophen [Acetaminophen ER] 650 mg PO Q6H PRN 10/20/18 History Carvedilol [Coreg] 12.5 mg PO BID 10/20/18 History Ergocalciferol (Vitamin D2) 50,000 unit PO DAILY 10/20/18 History [Vitamin D2] Levofloxacin [Levaquin] 250 mg PO DAILY 10/20/18 History Other Medications: Please see medication reconciliation sheet. - Allergies Allergies/Adverse Reactions: Allergies Allergy/AdvReac Type Severity Reaction Status Date / Time Penicillins [PCN] Allergy Verified 10/04/18 12:48 Review of Systems - Review of Systems Review of Systems: 83 y/o y/o female had an episode of syncope. Patient has hx of chf and htn. Constitutional: Report: No Significant Eyes: Report: No Significant ENT: Report: No Significant Respiratory: Report: No Significant Cardiovascular: Report: No Significant Gastrointestinal: Report: No Significant Genitourinary: Report: No Significant Musculoskeletal: Report: No Significant Skin: Report: No Significant Neurological: Report: Other (syncope.) Physical Exam - Physical Exam HEENT: Report: Ears Nose Throat within normal limits Neck: Report: Within normal limits Cardiovascular Systems: Report: +s1/s2 noted, Regular, Rate and Rhythm Respiratory: Report: Breath Sounds are within normal limits Abdomen: Report: Non-tender to palpation Back: Report: Inspection of back is within normal limits. Extremities: Report: Non-tender to palpation. Skin: Report: Color of skin is within normal limits Neuro/Psych: Report: Mood affect is within normal limits - Lab Results All Lab Results last 24 hours: Laboratory Results - last 24 hr 10/20/18 10/20/18 10/20/18 15:45 15:45 15:45 WBC 10.5 RBC 4.64 Hgb 13.2 Hct 39.9 L MCV 85.8 MCH 28.4 MCHC Differential 33.1 RDW 14.6 Plt Count 410 H MPV 7.3 Neutrophils % 65.1 Lymphocytes % 24.6 Monocytes % 8.1 Eosinophils % 1.9 Basophils % 0.3 PT 10.0 INR 0.96 PTT (Actin FS) 25.2 L Sodium Potassium Chloride Carbon Dioxide Anion Gap BUN Creatinine Est GFR ( Amer) Est GFR (Non-Af Amer) BUN/Creatinine Ratio Glucose POC Glucose Calcium Total Bilirubin AST ALT Alkaline Phosphatase Troponin I B-Natriuretic Peptide Total Protein Albumin Globulin Albumin/Globulin Ratio Triglycerides 207 H Cholesterol 184 LDL Cholesterol Direct 108 HDL Cholesterol 44 TSH Urine Source Urine Color Urine Clarity Urine pH Ur Specific Counselor Urine Protein Urine Glucose (UA) Urine Ketones Urine Blood Urine Nitrate Urine Bilirubin Urine Urobilinogen Ur Leukocyte Esterase Urine RBC Urine WBC Ur Epithelial Cells Urine Bacteria Urine Opiates Screen Urine Methadone Screen Ur Barbiturates Screen Ur Tricyclics Screen Ur Phencyclidine Scrn Amphetamines Screen U Methamphetamines Scrn U Benzodiazepines Scrn U Cocaine Metab Screen U Cannabinoids Screen 10/20/18 10/20/18 10/20/18 15:45 15:45 15:45 WBC RBC Hgb Hct MCV MCH MCHC Differential RDW Plt Count MPV Neutrophils % Lymphocytes % Monocytes % Eosinophils % Basophils % PT INR PTT (Actin FS) Sodium 130 L Potassium 4.5 Chloride 97 L Carbon Dioxide 27.0 Anion Gap 10.5 BUN 16 Creatinine 0.8 Est GFR ( Amer) TNP Est GFR (Non-Af Amer) TNP BUN/Creatinine Ratio 20.0 Glucose 114 H POC Glucose Calcium 10.3 Total Bilirubin 0.4 AST 12 L ALT 11 Alkaline Phosphatase 73 Troponin I < 0.01 L B-Natriuretic Peptide Total Protein 6.7 Albumin 3.7 Globulin 3.0 Albumin/Globulin Ratio 1.2 Triglycerides Cholesterol LDL Cholesterol Direct HDL Cholesterol TSH 2.32 Urine Source Urine Color Urine Clarity Urine pH Ur Specific Counselor Urine Protein Urine Glucose (UA) Urine Ketones Urine Blood Urine Nitrate Urine Bilirubin Urine Urobilinogen Ur Leukocyte Esterase Urine RBC Urine WBC Ur Epithelial Cells Urine Bacteria Urine Opiates Screen Urine Methadone Screen Ur Barbiturates Screen Ur Tricyclics Screen Ur Phencyclidine Scrn Amphetamines Screen U Methamphetamines Scrn U Benzodiazepines Scrn U Cocaine Metab Screen U Cannabinoids Screen 10/20/18 10/20/18 10/20/18 15:45 17:30 17:30 WBC RBC Hgb Hct MCV MCH MCHC Differential RDW Plt Count MPV Neutrophils % Lymphocytes % Monocytes % Eosinophils % Basophils % PT INR PTT (Actin FS) Sodium Potassium Chloride Carbon Dioxide Anion Gap BUN Creatinine Est GFR ( Amer) Est GFR (Non-Af Amer) BUN/Creatinine Ratio Glucose POC Glucose Calcium Total Bilirubin AST ALT Alkaline Phosphatase Troponin I B-Natriuretic Peptide 39.5 Total Protein Albumin Globulin Albumin/Globulin Ratio Triglycerides Cholesterol LDL Cholesterol Direct HDL Cholesterol TSH Urine Source CLEAN C Urine Color YELLOW Urine Clarity CLEAR Urine pH 6.5 Ur Specific Counselor 1.010 Urine Protein NEGATIVE Urine Glucose (UA) NEGATIVE Urine Ketones NEGATIVE Urine Blood NEGATIVE Urine Nitrate NEGATIVE Urine Bilirubin NEGATIVE Urine Urobilinogen 0.2 Ur Leukocyte Esterase SMALL H Urine RBC 0-2 Urine WBC 2-5 Ur Epithelial Cells MODERATE Urine Bacteria 1+ H Urine Opiates Screen NEGATIVE Urine Methadone Screen NEGATIVE Ur Barbiturates Screen NEGATIVE Ur Tricyclics Screen NEGATIVE Ur Phencyclidine Scrn NEGATIVE Amphetamines Screen NEGATIVE U Methamphetamines Scrn NEGATIVE U Benzodiazepines Scrn NEGATIVE U Cocaine Metab Screen NEGATIVE U Cannabinoids Screen NEGATIVE 10/20/18 10/21/18 10/21/18 17:31 05:15 05:15 WBC 10.1 RBC 4.16 Hgb 12.1 Hct 35.8 L MCV 86.1 MCH 29.0 MCHC Differential 33.6 RDW 14.6 Plt Count 359 MPV 7.3 Neutrophils % 62.8 Lymphocytes % 25.4 Monocytes % 7.0 Eosinophils % 3.0 Basophils % 1.8 PT INR PTT (Actin FS) Sodium 130 L Potassium 3.8 Chloride 99 Carbon Dioxide 25.6 Anion Gap 9.2 BUN 16 Creatinine 0.7 Est GFR ( Amer) TNP Est GFR (Non-Af Amer) TNP BUN/Creatinine Ratio 22.9 Glucose 127 H POC Glucose 108 H Calcium 9.7 Total Bilirubin 0.6 AST 10 L ALT 9 Alkaline Phosphatase 65 Troponin I B-Natriuretic Peptide Total Protein 5.9 L Albumin 3.2 L Globulin 2.7 Albumin/Globulin Ratio 1.2 Triglycerides Cholesterol LDL Cholesterol Direct HDL Cholesterol TSH Urine Source Urine Color Urine Clarity Urine pH Ur Specific Counselor Urine Protein Urine Glucose (UA) Urine Ketones Urine Blood Urine Nitrate Urine Bilirubin Urine Urobilinogen Ur Leukocyte Esterase Urine RBC Urine WBC Ur Epithelial Cells Urine Bacteria Urine Opiates Screen Urine Methadone Screen Ur Barbiturates Screen Ur Tricyclics Screen Ur Phencyclidine Scrn Amphetamines Screen U Methamphetamines Scrn U Benzodiazepines Scrn U Cocaine Metab Screen U Cannabinoids Screen - Assessment Assessment: Mild Cardiomegaly with Atherosclerosis. Syncope. Hypertension. Electrolyte imbalance. History of COPD/Asthma. CHF. History of Dyslipidemia. Obesity. - Plan Plan: Continuation of care. [employer] consult. Monitor Vitals, Labs and Chest x-ray. Continue present meds as directed. Monitor Diet/Nutritional support. Pain Management. Supportive care. Fall precaution, frequent nursing rounds, and as needed restraints to prevent fall. Continue collaborating with consulting specialists, case management and nursing team. Will Monitor patient and continue current treatment plan as ordered.
--- NOTE | 2018-10-21 13:33 | History & Physical ---
ADMIT DATE: 10/21/2018 HISTORY OF PRESENT ILLNESS: The patient is an 83-year-old female. Apparently, she has multiple medical problems including history of congestive heart failure, history of CHF, history of asthma, COPD, hyperlipidemia and also has several episodes of syncopal episodes and altered level of consciousness and she was having the same problem near syncope. She was sent to the Emergency Room, evaluated and was admitted. PAST MEDICAL HISTORY: As enumerated above. PHYSICAL EXAMINATION: GENERAL: The patient is awake, alert, not in acute distress. VITAL SIGNS: Stable. HEAD: Normal. ENT: Normal. LUNGS: Bilaterally clear. CARDIOVASCULAR SYSTEM: S1 and S2 heard. ABDOMEN: Soft. Bowel sounds are heard. CENTRAL NERVOUS SYSTEM: Grossly normal. DIAGNOSES: Near syncopal episodes, history of altered level of consciousness and history of CHF, congestive heart failure, and history of chronic obstructive pulmonary disease, hyperlipidemia, obesity, history of pneumonia, but no history of fall was made. The patient is going to will work up and we will have Cardiology see her and I will follow closely. JOB# [id number]
--- NOTE | 2018-10-21 15:56 | Consultation ---
Consult Note - Consult Note Service Date: 10/21/18 Referring Physician: Miguelangel Friedman Consult Note: PHYSICIAN Consultation Note: Date of Admission: 10/20/18 Purpose of Consultation: pneumonia, UTI Chief Complaint: Patient GABRIELE MARTINEZ was admitted to [facility] Telemetry with SYNCOPE,HTN,ELECTROYLTE IMBALANCE., sycope. History of Present Illness: 83-year-old female with history of falls, transient ALOC with quickk recovery, HTN, gait disturbance, admitted recently for multiple falls and one sycopal episode. Work up was performed and it was negative.She was discharged in stable condition. This time was taking her food and suddenly became unconscious and snoring. She was brought to the ED for again for same issue. On the last admission, she was also diagnosed pneumonia was treated by levaquin. CXr again showed some LLL atx versus infiltrate. UA also showed pyuria and bacteriuria. Denies any dysuria or bacteriuria. NO fever, no chills. Past Medical History: Allergies Allergy/AdvReac Type Severity Reaction Status Date / Time Penicillins [PCN] Allergy Verified 10/04/18 12:48 Vital Signs Temp 97.1 F 10/21/18 11:53 Pulse 90 10/21/18 11:53 Resp 19 10/21/18 11:53 BP 128/79 10/21/18 11:53 Pulse Ox 97 10/21/18 11:53 Intake & Output 10/20/18 10/21/18 10/21/18 18:59 06:59 18:59 Intake Total 240 610 810 Balance 240 610 810 Weight (lbs) 72.892 kg 72.575 kg Intake: Intake, IV Amount 530 810 D5-0.45NS 1,000 ml @ 100 430 810 mls/hr IV .Q10H [facility] Rx#: [id number] Levofloxacin 500mg/100mL 100 500 mg In 100 ml @ 100 mls/hr IV Q24HR [facility] Rx#: [id number] Oral 240 80 Other: # Voids 0 10 Weight Source Bedscale Bedscale Laboratory Results - last 24 hr 10/20/18 10/20/18 10/20/18 15:45 15:45 15:45 WBC 10.5 RBC 4.64 Hgb 13.2 Hct 39.9 L MCV 85.8 MCH 28.4 MCHC Differential 33.1 RDW 14.6 Plt Count 410 H MPV 7.3 Neutrophils % 65.1 Lymphocytes % 24.6 Monocytes % 8.1 Eosinophils % 1.9 Basophils % 0.3 PT 10.0 INR 0.96 PTT (Actin FS) 25.2 L Sodium Potassium Chloride Carbon Dioxide Anion Gap BUN Creatinine Est GFR ( Amer) Est GFR (Non-Af Amer) BUN/Creatinine Ratio Glucose POC Glucose Calcium Total Bilirubin AST ALT Alkaline Phosphatase Troponin I B-Natriuretic Peptide Total Protein Albumin Globulin Albumin/Globulin Ratio Triglycerides 207 H Cholesterol 184 LDL Cholesterol Direct 108 HDL Cholesterol 44 TSH Urine Source Urine Color Urine Clarity Urine pH Ur Specific [place] Urine Protein Urine Glucose (UA) Urine Ketones Urine Blood Urine Nitrate Urine Bilirubin Urine Urobilinogen Ur Leukocyte Esterase Urine RBC Urine WBC Ur Epithelial Cells Urine Bacteria Urine Opiates Screen Urine Methadone Screen Ur Barbiturates Screen Ur Tricyclics Screen Ur Phencyclidine Scrn Amphetamines Screen U Methamphetamines Scrn U Benzodiazepines Scrn U Cocaine Metab Screen U Cannabinoids Screen 10/20/18 10/20/18 10/20/18 15:45 15:45 15:45 WBC RBC Hgb Hct MCV MCH MCHC Differential RDW Plt Count MPV Neutrophils % Lymphocytes % Monocytes % Eosinophils % Basophils % PT INR PTT (Actin FS) Sodium 130 L Potassium 4.5 Chloride 97 L Carbon Dioxide 27.0 Anion Gap 10.5 BUN 16 Creatinine 0.8 Est GFR ( Amer) TNP Est GFR (Non-Af Amer) TNP BUN/Creatinine Ratio 20.0 Glucose 114 H POC Glucose Calcium 10.3 Total Bilirubin 0.4 AST 12 L ALT 11 Alkaline Phosphatase 73 Troponin I < 0.01 L B-Natriuretic Peptide Total Protein 6.7 Albumin 3.7 Globulin 3.0 Albumin/Globulin Ratio 1.2 Triglycerides Cholesterol LDL Cholesterol Direct HDL Cholesterol TSH 2.32 Urine Source Urine Color Urine Clarity Urine pH Ur Specific [place] Urine Protein Urine Glucose (UA) Urine Ketones Urine Blood Urine Nitrate Urine Bilirubin Urine Urobilinogen Ur Leukocyte Esterase Urine RBC Urine WBC Ur Epithelial Cells Urine Bacteria Urine Opiates Screen Urine Methadone Screen Ur Barbiturates Screen Ur Tricyclics Screen Ur Phencyclidine Scrn Amphetamines Screen U Methamphetamines Scrn U Benzodiazepines Scrn U Cocaine Metab Screen U Cannabinoids Screen 10/20/18 10/20/18 10/20/18 15:45 17:30 17:30 WBC RBC Hgb Hct MCV MCH MCHC Differential RDW Plt Count MPV Neutrophils % Lymphocytes % Monocytes % Eosinophils % Basophils % PT INR PTT (Actin FS) Sodium Potassium Chloride Carbon Dioxide Anion Gap BUN Creatinine Est GFR ( Amer) Est GFR (Non-Af Amer) BUN/Creatinine Ratio Glucose POC Glucose Calcium Total Bilirubin AST ALT Alkaline Phosphatase Troponin I B-Natriuretic Peptide 39.5 Total Protein Albumin Globulin Albumin/Globulin Ratio Triglycerides Cholesterol LDL Cholesterol Direct HDL Cholesterol TSH Urine Source CLEAN C Urine Color YELLOW Urine Clarity CLEAR Urine pH 6.5 Ur Specific [place] 1.010 Urine Protein NEGATIVE Urine Glucose (UA) NEGATIVE Urine Ketones NEGATIVE Urine Blood NEGATIVE Urine Nitrate NEGATIVE Urine Bilirubin NEGATIVE Urine Urobilinogen 0.2 Ur Leukocyte Esterase SMALL H Urine RBC 0-2 Urine WBC 2-5 Ur Epithelial Cells MODERATE Urine Bacteria 1+ H Urine Opiates Screen NEGATIVE Urine Methadone Screen NEGATIVE Ur Barbiturates Screen NEGATIVE Ur Tricyclics Screen NEGATIVE Ur Phencyclidine Scrn NEGATIVE Amphetamines Screen NEGATIVE U Methamphetamines Scrn NEGATIVE U Benzodiazepines Scrn NEGATIVE U Cocaine Metab Screen NEGATIVE U Cannabinoids Screen NEGATIVE 10/20/18 10/21/18 10/21/18 17:31 05:15 05:15 WBC 10.1 RBC 4.16 Hgb 12.1 Hct 35.8 L MCV 86.1 MCH 29.0 MCHC Differential 33.6 RDW 14.6 Plt Count 359 MPV 7.3 Neutrophils % 62.8 Lymphocytes % 25.4 Monocytes % 7.0 Eosinophils % 3.0 Basophils % 1.8 PT INR PTT (Actin FS) Sodium 130 L Potassium 3.8 Chloride 99 Carbon Dioxide 25.6 Anion Gap 9.2 BUN 16 Creatinine 0.7 Est GFR ( Amer) TNP Est GFR (Non-Af Amer) TNP BUN/Creatinine Ratio 22.9 Glucose 127 H POC Glucose 108 H Calcium 9.7 Total Bilirubin 0.6 AST 10 L ALT 9 Alkaline Phosphatase 65 Troponin I B-Natriuretic Peptide Total Protein 5.9 L Albumin 3.2 L Globulin 2.7 Albumin/Globulin Ratio 1.2 Triglycerides Cholesterol LDL Cholesterol Direct HDL Cholesterol TSH Urine Source Urine Color Urine Clarity Urine pH Ur Specific [place] Urine Protein Urine Glucose (UA) Urine Ketones Urine Blood Urine Nitrate Urine Bilirubin Urine Urobilinogen Ur Leukocyte Esterase Urine RBC Urine WBC Ur Epithelial Cells Urine Bacteria Urine Opiates Screen Urine Methadone Screen Ur Barbiturates Screen Ur Tricyclics Screen Ur Phencyclidine Scrn Amphetamines Screen U Methamphetamines Scrn U Benzodiazepines Scrn U Cocaine Metab Screen U Cannabinoids Screen Home Medication Medication Instructions Recorded Type Raloxifene HCl 60 mg PO DAILY 10/04/18 History Potassium Chloride ER [Klor-Con] [address] 10/08/18 Rx Triamterene [Dyrenium] 50 mg PO DAILY cap 10/08/18 Rx Acetaminophen [Acetaminophen ER] 650 mg PO Q6H PRN 10/20/18 History Carvedilol [Coreg] 12.5 mg PO BID 10/20/18 History Ergocalciferol (Vitamin D2) 50,000 unit PO DAILY 10/20/18 History [Vitamin D2] Levofloxacin [Levaquin] 250 mg PO DAILY 10/20/18 History Current Medications Generic Name Dose Route Start Last Admin Trade Name Freq PRN Reason Stop Dose Admin Acetaminophen 650 mg 10/21/18 09:23 10/21/18 13:16 Tylenol PO 12/20/18 09:22 650 mg Q6HR PRN Administration Pain (Mild) Carvedilol 12.5 mg 10/21/18 17:00 Coreg PO 12/20/18 16:59 BID [facility] Dextrose/Sodium Chloride 1,000 mls @ 100 mls/hr 10/20/18 17:40 10/21/18 11:20 D5-0.45ns IV 12/19/18 17:39 100 mls/hr .Q10H [facility] Administration Levofloxacin 500 mg in 100 mls @ 100 mls/hr 10/21/18 01:00 10/21/18 02:20 Levaquin Pb IV 10/27/18 01:59 Infused Q24HR [facility] Infusion Spironolactone 25 mg 10/21/18 17:00 Aldactone PO 12/20/18 16:59 BID [facility] Review of Systems: A 12 point ROS was reviewed with the pertinent positive and negatives noted in the HPI. Social History Smoking Status Unknown if ever smoked Family Medical History Unknown. Physical Exam: General: Comfortable, obese, not in any acute distress. WNW D. HEENT: Head NC NT. Oral cavity: moist and pink tongue. Eyes: no pallor, no icterus. Pupil PERRLA. EOMI. Neck: Supple, no JVD, no carotid bruit. There is no use of accessory neck muscles. No thyromegaly. Cardio: S1 and S2 WNL. No murmur, no gallop. Respiratory: CTAP. Abdominal: Soft NT ND BS present. Genital/Urinary: deferred. Extremities: NCCE. Neurological: AAOx3. cannot stand on her own. Assessment: 1. LLL pneumonia treated. 2. UTI, asymptomatic. 3. Transient ALOC, sycope versus absent seizures. 4. HTN. Plan: DC antibiotics. EEG, TSH. Thank you, Dr Friedman for invovling me in taking care of this patient. Signed, Carlos Golden M.D. [id number]
[2018-10-22] MEDS ORDERED: RALOXIFENE HCL 60 MG PO SCH (09:00)
[2018-10-22] MEDS: D5-0.45NS 1,000 ML IV SCH ×2 (10:09→20:38)
--- NOTE | 2018-10-22 21:25 | Infectious Disease Prog Note ---
Infectious Disease Subjective - Review of Systems Service Date: 10/22/18 Subjective: No change. EEG was done today. Infectious Disease Objective - Results Result Diagrams: 10/21/18 05:15 10/21/18 05:15 Recent Labs: Laboratory Last Values WBC 10.1 Th/cmm (4.8-10.8) 10/21/18 05:15 RBC 4.16 Mil/cmm (3.80-5.20) 10/21/18 05:15 Hgb 12.1 gm/dL (12-16) 10/21/18 05:15 Hct 35.8 % (41.0-60) L 10/21/18 05:15 MCV 86.1 fl (81-100) 10/21/18 05:15 MCH 29.0 pg (27.0-31.0) 10/21/18 05:15 MCHC Differential 33.6 pg (28.0-36.0) 10/21/18 05:15 RDW 14.6 % (11.5-20.0) 10/21/18 05:15 Plt Count 359 Th/cmm (150-400) 10/21/18 05:15 MPV 7.3 fl 10/21/18 05:15 Neutrophils % 62.8 % (40.0-80.0) 10/21/18 05:15 Lymphocytes % 25.4 % (20.0-50.0) 10/21/18 05:15 Monocytes % 7.0 % (2.0-10.0) 10/21/18 05:15 Eosinophils % 3.0 % (0.0-5.0) 10/21/18 05:15 Basophils % 1.8 % (0.0-2.0) 10/21/18 05:15 PT 10.0 SECONDS (9.5-11.5) 10/20/18 15:45 INR 0.96 (0.5-1.4) 10/20/18 15:45 PTT (Actin FS) 25.2 SECONDS (26.0-38.0) L 10/20/18 15:45 Sodium 130 mEq/L (136-145) L 10/21/18 05:15 Potassium 3.8 mEq/L (3.5-5.1) 10/21/18 05:15 Chloride 99 mEq/L (98-107) 10/21/18 05:15 Carbon Dioxide 25.6 mEq/L (21.0-31.0) 10/21/18 05:15 Anion Gap 9.2 (7.0-16.0) 10/21/18 05:15 BUN 16 mg/dL (7-25) 10/21/18 05:15 Creatinine 0.7 mg/dL (0.6-1.2) 10/21/18 05:15 Est GFR ( Amer) TNP 10/21/18 05:15 Est GFR (Non-Af Amer) TNP 10/21/18 05:15 BUN/Creatinine Ratio 22.9 10/21/18 05:15 Glucose 127 mg/dL (70-105) H 10/21/18 05:15 POC Glucose 108 MG/DL (70 - 105) H 10/20/18 17:31 Calcium 9.7 mg/dL (8.6-10.3) 10/21/18 05:15 Total Bilirubin 0.6 mg/dL (0.3-1.0) 10/21/18 05:15 AST 10 U/L (13-39) L 10/21/18 05:15 ALT 9 U/L (7-52) 10/21/18 05:15 Alkaline Phosphatase 65 U/L (34-104) 10/21/18 05:15 Troponin I < 0.01 ng/mL (0.01-0.05) L 10/20/18 15:45 B-Natriuretic Peptide 39.5 pg/mL (5.0-100.0) 10/20/18 15:45 Total Protein 5.9 gm/dL (6.0-8.3) L 10/21/18 05:15 Albumin 3.2 gm/dL (3.7-5.3) L 10/21/18 05:15 Globulin 2.7 gm/dL 10/21/18 05:15 Albumin/Globulin Ratio 1.2 (1.0-1.8) 10/21/18 05:15 Triglycerides 207 mg/dL (<150) H 10/20/18 15:45 Cholesterol 184 mg/dL (<200) 10/20/18 15:45 LDL Cholesterol Direct 108 mg/dL (75-193) 10/20/18 15:45 HDL Cholesterol 44 mg/dL (23-92) 10/20/18 15:45 TSH 2.32 uIU/ml (0.34-5.60) 10/20/18 15:45 Urine Source CLEAN C 10/20/18 17:30 Urine Color YELLOW 10/20/18 17:30 Urine Clarity CLEAR (CLEAR) 10/20/18 17:30 Urine pH 6.5 (4.6 - 8.0) 10/20/18 17:30 Ur Specific [place] 1.010 (1.005-1.030) 10/20/18 17:30 Urine Protein NEGATIVE mg/dL (NEGATIVE) 10/20/18 17:30 Urine Glucose (UA) NEGATIVE mg/dL (NEGATIVE) 10/20/18 17:30 Urine Ketones NEGATIVE mg/dL (NEGATIVE) 10/20/18 17:30 Urine Blood NEGATIVE (NEGATIVE) 10/20/18 17:30 Urine Nitrate NEGATIVE (NEGATIVE) 10/20/18 17:30 Urine Bilirubin NEGATIVE (NEGATIVE) 10/20/18 17:30 Urine Urobilinogen 0.2 E.U./dL (0.2 - 1.0) 10/20/18 17:30 Ur Leukocyte Esterase SMALL (NEGATIVE) H 10/20/18 17:30 Urine RBC 0-2 /hpf (0-5) 10/20/18 17:30 Urine WBC 2-5 /hpf (0-5) 10/20/18 17:30 Ur Epithelial Cells MODERATE /lpf (FEW) 10/20/18 17:30 Urine Bacteria 1+ /hpf (NONE SEEN) H 10/20/18 17:30 Urine Opiates Screen NEGATIVE (NEGATIVE) 10/20/18 17:30 Urine Methadone Screen NEGATIVE (NEGATIVE) 10/20/18 17:30 Ur Barbiturates Screen NEGATIVE (NEGATIVE) 10/20/18 17:30 Ur Tricyclics Screen NEGATIVE (NEGATIVE) 10/20/18 17:30 Ur Phencyclidine Scrn NEGATIVE (NEGATIVE) 10/20/18 17:30 Amphetamines Screen NEGATIVE (NEGATIVE) 10/20/18 17:30 U Methamphetamines Scrn NEGATIVE (NEGATIVE) 10/20/18 17:30 U Benzodiazepines Scrn NEGATIVE (NEGATIVE) 10/20/18 17:30 U Cocaine Metab Screen NEGATIVE (NEGATIVE) 10/20/18 17:30 U Cannabinoids Screen NEGATIVE (NEGATIVE) 10/20/18 17:30 - Physical Exam Vitals and I&O: Vital Signs Temp 98.2 F 10/22/18 20:00 Pulse 87 10/22/18 20:00 Resp 20 10/22/18 21:00 BP 139/73 10/22/18 20:00 Pulse Ox 96 10/22/18 20:00 Intake & Output 10/22/18 10/22/18 10/23/18 06:59 18:59 06:59 Intake Total 1000 1000 Balance 1000 1000 Weight (lbs) 74.072 kg 73.936 kg Intake: Intake, IV Amount 1000 1000 D5-0.45NS 1,000 ml @ 100 1000 1000 mls/hr IV .Q10H [facility] Rx#: [id number] Other: # Voids 2 # Bowel Movements 0 Weight Source Bedscale Bedscale Active Medications: Current Medications Acetaminophen (Tylenol) 650 mg PO Q6HR PRN PRN Reason: Pain (Mild) Stop: 12/20/18 09:22 Last Admin: 10/21/18 21:20 Dose: 650 mg Carvedilol (Coreg) 12.5 mg PO BID [facility] Stop: 12/20/18 16:59 Last Admin: 10/22/18 16:20 Dose: 12.5 mg Dextrose/Sodium Chloride (D5-0.45ns) 1,000 mls @ 100 mls/hr IV .Q10H [facility] Stop: 12/19/18 17:39 Last Admin: 10/22/18 20:38 Dose: 100 mls/hr Spironolactone (Aldactone) 25 mg PO BID [facility] Stop: 12/20/18 16:59 Last Admin: 10/22/18 16:19 Dose: 25 mg General: no acute distress, well developed, well nourished HEENT: atraumatic, normocephalic, PERRLA, EOMI Neck: supple, no thyromegaly, no lymphadenopathy Cardiovascular: S1S2, regular Lungs: clear to auscultation bilaterally, clear to percussion Abdomen: soft, no tender, no distended, no mass Extremities: no cyanosis, no clubbing, no edema Neurological: awake, alert, oriented Skin: intact Infectious Disease Assmt/Plan - Assessment Assessment: 1. LLL pneumonia treated. 2. UTI, asymptomatic. 3. Transient ALOC, sycope versus absent seizures. 4. HTN. - Plan Plan: Check EEG report
[2018-10-23 07:56] LABS: % BASOPHILS 0.8 % (0.0-2.0); % EOSINOPHILS 5.4 % (0.0-5.0); % LYMPHOCYTES 30.2 % (20.0-50.0); % MONOCYTES 12.5 % (2.0-10.0); % NEUTROPHILS 51.1 % (40.0-80.0); BASOPHILE ABSOLUTE 0.1 Th/cumm (0-0.2); EOSINOPHILE ABSOLUTE 0.4 Th/cmm (0.1-0.4); HEMATOCRIT 36.2 % (41.0-60); HEMOGLOBIN 12.1 gm/dL (12-16); LYMPHOCYTE ABSOLUTE 2.5 Th/cmm (1.5-3.0); MEAN CELL VOLUME 85.9 fl (81-100); MEAN CORPUSCULAR HEMOGLOBIN 28.8 pg (27.0-31.0); MEAN CORPUSCULAR HGB CONC 33.5 pg (28.0-36.0); MEAN PLATELET VOLUME 7.1 fl; NEUTROPHILE ABSOLUTE 4.3 Th/cmm (1.8-8.0); PLATELET COUNT 383 Th/cmm (150-400); RED BLOOD COUNT 4.21 Mil/cmm (3.80-5.20); WHITE BLOOD COUNT 8.3 Th/cmm (4.8-10.8)
[2018-10-23 08:11] LABS: ANION GAP 9.6 (7.0-16.0); BUN - UREA NITROGEN 9 mg/dL (7-25); CALCIUM SERUM 9.6 mg/dL (8.6-10.3); CARBON DIOXIDE 27.2 mEq/L (21.0-31.0); CHLORIDE 100 mEq/L (98-107); CREATININE - SERUM 0.6 mg/dL (0.6-1.2); GLUCOSE 128 mg/dL (70-105); POTASSIUM SERUM 3.8 mEq/L (3.5-5.1); SODIUM SERUM 133 mEq/L (136-145)
[2018-10-23] MEDS: guaiFENesin 200 MG/10 ML UDC PO PRN ×2 (09:06→23:54)
[2018-10-23] MEDS: D5-0.45NS 1,000 ML IV SCH (17:59)
--- NOTE | 2018-10-23 20:17 | Consultation ---
DATE OF CONSULTATION: 10/23/2018 PATIENT OF: Dr. Carlos Golden. HISTORY OF PRESENT ILLNESS: This is an 83-year-old female patient who has frequent falls with one episode of syncope. Following this, the patient was brought to the hospital. The patient does have imbalance in gait. The patient at the present time is confused. PAST MEDICAL HISTORY: Left lower lobe pneumonia, syncope, frequent falls, coronary artery disease, hypertension, congestive heart failure, chronic anxiety, and osteoporosis. FAMILY HISTORY: Unremarkable. SOCIAL HISTORY: No history of smoking, alcohol abuse. ALLERGIES: PENICILLIN. PHYSICAL EXAMINATION: VITAL SIGNS: Blood pressure 120/79, pulse 80, respirations 20, temperature 98. HEAD: Normocephalic. No lumps or bumps. EYES: Pupils equal, reactive to light. Fundi show AV nicking, sclerae white, conjunctivae pink. NECK: Carotid 2+. Normal upstroke. JVD flat. Thyroid not palpable. Lymph nodes not palpable. CHEST: Shows increased AP diameter. No kyphosis, scoliosis. LUNGS: Bilateral bronchovesicular breath sounds. Occasional wheeze. No rales. HEART: PMI fifth intercostal space with lateral to midclavicular line. S1, S2, S3, S4, soft systolic murmur. ABDOMEN: Soft. Liver and spleen not palpable. No organomegaly. Bowel sounds active. NEUROLOGIC: The patient has unsteady gait. CLINICAL IMPRESSION: 1. Syncope, etiology unknown. We will get echocardiogram. 2. Hypertension, coronary artery disease, anxiety, chronic congestive heart failure, osteoporosis. PLAN: We will get echocardiogram in view of syncope and monitor the patient on telemetry bed. JOB# [id number]
--- NOTE | 2018-10-24 11:52 | Infectious Disease Prog Note ---
Infectious Disease Subjective - Review of Systems Service Date: 10/24/18 Subjective: No change. EEG was done today. Infectious Disease Objective - Results Result Diagrams: 10/23/18 07:53 10/23/18 07:53 Recent Labs: Laboratory Last Values WBC 8.3 Th/cmm (4.8-10.8) 10/23/18 07:53 RBC 4.21 Mil/cmm (3.80-5.20) 10/23/18 07:53 Hgb 12.1 gm/dL (12-16) 10/23/18 07:53 Hct 36.2 % (41.0-60) L 10/23/18 07:53 MCV 85.9 fl (81-100) 10/23/18 07:53 MCH 28.8 pg (27.0-31.0) 10/23/18 07:53 MCHC Differential 33.5 pg (28.0-36.0) 10/23/18 07:53 RDW 14.0 % (11.5-20.0) 10/23/18 07:53 Plt Count 383 Th/cmm (150-400) 10/23/18 07:53 MPV 7.1 fl 10/23/18 07:53 Neutrophils % 51.1 % (40.0-80.0) 10/23/18 07:53 Lymphocytes % 30.2 % (20.0-50.0) 10/23/18 07:53 Monocytes % 12.5 % (2.0-10.0) H 10/23/18 07:53 Eosinophils % 5.4 % (0.0-5.0) H 10/23/18 07:53 Basophils % 0.8 % (0.0-2.0) 10/23/18 07:53 PT 10.0 SECONDS (9.5-11.5) 10/20/18 15:45 INR 0.96 (0.5-1.4) 10/20/18 15:45 PTT (Actin FS) 25.2 SECONDS (26.0-38.0) L 10/20/18 15:45 Sodium 133 mEq/L (136-145) L 10/23/18 07:53 Potassium 3.8 mEq/L (3.5-5.1) 10/23/18 07:53 Chloride 100 mEq/L (98-107) 10/23/18 07:53 Carbon Dioxide 27.2 mEq/L (21.0-31.0) 10/23/18 07:53 Anion Gap 9.6 (7.0-16.0) 10/23/18 07:53 BUN 9 mg/dL (7-25) 10/23/18 07:53 Creatinine 0.6 mg/dL (0.6-1.2) 10/23/18 07:53 Est GFR ( Amer) TNP 10/23/18 07:53 Est GFR (Non-Af Amer) TNP 10/23/18 07:53 BUN/Creatinine Ratio 15.0 10/23/18 07:53 Glucose 128 mg/dL (70-105) H 10/23/18 07:53 POC Glucose 108 MG/DL (70 - 105) H 10/20/18 17:31 Calcium 9.6 mg/dL (8.6-10.3) 10/23/18 07:53 Total Bilirubin 0.6 mg/dL (0.3-1.0) 10/21/18 05:15 AST 10 U/L (13-39) L 10/21/18 05:15 ALT 9 U/L (7-52) 10/21/18 05:15 Alkaline Phosphatase 65 U/L (34-104) 10/21/18 05:15 Troponin I < 0.01 ng/mL (0.01-0.05) L 10/20/18 15:45 B-Natriuretic Peptide 39.5 pg/mL (5.0-100.0) 10/20/18 15:45 Total Protein 5.9 gm/dL (6.0-8.3) L 10/21/18 05:15 Albumin 3.2 gm/dL (3.7-5.3) L 10/21/18 05:15 Globulin 2.7 gm/dL 10/21/18 05:15 Albumin/Globulin Ratio 1.2 (1.0-1.8) 10/21/18 05:15 Triglycerides 207 mg/dL (<150) H 10/20/18 15:45 Cholesterol 184 mg/dL (<200) 10/20/18 15:45 LDL Cholesterol Direct 108 mg/dL (75-193) 10/20/18 15:45 HDL Cholesterol 44 mg/dL (23-92) 10/20/18 15:45 TSH 2.32 uIU/ml (0.34-5.60) 10/20/18 15:45 Urine Source CLEAN C 10/20/18 17:30 Urine Color YELLOW 10/20/18 17:30 Urine Clarity CLEAR (CLEAR) 10/20/18 17:30 Urine pH 6.5 (4.6 - 8.0) 10/20/18 17:30 Ur Specific [place] 1.010 (1.005-1.030) 10/20/18 17:30 Urine Protein NEGATIVE mg/dL (NEGATIVE) 10/20/18 17:30 Urine Glucose (UA) NEGATIVE mg/dL (NEGATIVE) 10/20/18 17:30 Urine Ketones NEGATIVE mg/dL (NEGATIVE) 10/20/18 17:30 Urine Blood NEGATIVE (NEGATIVE) 10/20/18 17:30 Urine Nitrate NEGATIVE (NEGATIVE) 10/20/18 17:30 Urine Bilirubin NEGATIVE (NEGATIVE) 10/20/18 17:30 Urine Urobilinogen 0.2 E.U./dL (0.2 - 1.0) 10/20/18 17:30 Ur Leukocyte Esterase SMALL (NEGATIVE) H 10/20/18 17:30 Urine RBC 0-2 /hpf (0-5) 10/20/18 17:30 Urine WBC 2-5 /hpf (0-5) 10/20/18 17:30 Ur Epithelial Cells MODERATE /lpf (FEW) 10/20/18 17:30 Urine Bacteria 1+ /hpf (NONE SEEN) H 10/20/18 17:30 Urine Opiates Screen NEGATIVE (NEGATIVE) 10/20/18 17:30 Urine Methadone Screen NEGATIVE (NEGATIVE) 10/20/18 17:30 Ur Barbiturates Screen NEGATIVE (NEGATIVE) 10/20/18 17:30 Ur Tricyclics Screen NEGATIVE (NEGATIVE) 10/20/18 17:30 Ur Phencyclidine Scrn NEGATIVE (NEGATIVE) 10/20/18 17:30 Amphetamines Screen NEGATIVE (NEGATIVE) 10/20/18 17:30 U Methamphetamines Scrn NEGATIVE (NEGATIVE) 10/20/18 17:30 U Benzodiazepines Scrn NEGATIVE (NEGATIVE) 10/20/18 17:30 U Cocaine Metab Screen NEGATIVE (NEGATIVE) 10/20/18 17:30 U Cannabinoids Screen NEGATIVE (NEGATIVE) 10/20/18 17:30 - Physical Exam Vitals and I&O: Vital Signs Temp 97.6 F 10/24/18 08:00 Pulse 89 10/24/18 08:21 Resp 18 10/24/18 08:55 BP 145/91 10/24/18 08:21 Pulse Ox 98 10/24/18 08:00 Intake & Output 10/23/18 10/24/18 10/24/18 18:59 06:59 18:59 Intake Total 931.667 Output Total 4 Balance 931.667 -4 Weight (lbs) 74.026 kg 74.616 kg Intake: Intake, IV Amount 81.667 D5-0.45NS 1,000 ml @ 100 81.667 mls/hr IV .Q10H [facility] Rx#: [id number] Oral 850 Output: Urine 4 Other: # Voids 5 # Bowel Movements 0 0 Weight Source Bedscale Bedscale Active Medications: Current Medications Acetaminophen (Tylenol) 650 mg PO Q6HR PRN PRN Reason: Pain (Mild) Stop: 12/20/18 09:22 Last Admin: 10/23/18 22:19 Dose: 650 mg Carvedilol (Coreg) 12.5 mg PO BID [facility] Stop: 12/20/18 16:59 Last Admin: 10/24/18 08:21 Dose: 12.5 mg Guaifenesin (Robitussin) 200 mg PO TID PRN PRN Reason: Cough or Congestion Stop: 12/22/18 08:33 Last Admin: 10/23/18 23:54 Dose: 200 mg Dextrose/Sodium Chloride (D5-0.45ns) 1,000 mls @ 100 mls/hr IV .Q10H [facility] Stop: 12/19/18 17:39 Last Infusion: 10/23/18 18:48 Dose: 100 mls/hr Spironolactone (Aldactone) 25 mg PO BID [facility] Stop: 12/20/18 16:59 Last Admin: 10/24/18 08:21 Dose: 25 mg General: no acute distress, well developed, well nourished HEENT: atraumatic, normocephalic, PERRLA, EOMI Neck: supple, no thyromegaly, no lymphadenopathy Cardiovascular: S1S2, regular Lungs: clear to auscultation bilaterally, clear to percussion Abdomen: soft, no tender, no distended, no mass, no rebound Extremities: no cyanosis, no clubbing, no edema Neurological: awake, alert, oriented Skin: intact Infectious Disease Assmt/Plan - Assessment Assessment: 1. LLL pneumonia treated. 2. UTI, asymptomatic. 3. Transient ALOC, sycope versus absent seizures. 4. HTN. - Plan Plan: Check EEG report
[2018-10-24] MEDS: D5-0.45NS 1,000 ML IV SCH (13:15)
--- NOTE | 2018-10-24 14:07 | General Progress Note ---
Subjective - Review of Systems Service Date: 10/24/18 Subjective: As patient has no complaint of shortness of breath chest pain patient still has unsteady gait Objective - Results Result Diagrams: 10/23/18 07:53 10/23/18 07:53 Recent Labs: Laboratory Last Values WBC 8.3 Th/cmm (4.8-10.8) 10/23/18 07:53 RBC 4.21 Mil/cmm (3.80-5.20) 10/23/18 07:53 Hgb 12.1 gm/dL (12-16) 10/23/18 07:53 Hct 36.2 % (41.0-60) L 10/23/18 07:53 MCV 85.9 fl (81-100) 10/23/18 07:53 MCH 28.8 pg (27.0-31.0) 10/23/18 07:53 MCHC Differential 33.5 pg (28.0-36.0) 10/23/18 07:53 RDW 14.0 % (11.5-20.0) 10/23/18 07:53 Plt Count 383 Th/cmm (150-400) 10/23/18 07:53 MPV 7.1 fl 10/23/18 07:53 Neutrophils % 51.1 % (40.0-80.0) 10/23/18 07:53 Lymphocytes % 30.2 % (20.0-50.0) 10/23/18 07:53 Monocytes % 12.5 % (2.0-10.0) H 10/23/18 07:53 Eosinophils % 5.4 % (0.0-5.0) H 10/23/18 07:53 Basophils % 0.8 % (0.0-2.0) 10/23/18 07:53 PT 10.0 SECONDS (9.5-11.5) 10/20/18 15:45 INR 0.96 (0.5-1.4) 10/20/18 15:45 PTT (Actin FS) 25.2 SECONDS (26.0-38.0) L 10/20/18 15:45 Sodium 133 mEq/L (136-145) L 10/23/18 07:53 Potassium 3.8 mEq/L (3.5-5.1) 10/23/18 07:53 Chloride 100 mEq/L (98-107) 10/23/18 07:53 Carbon Dioxide 27.2 mEq/L (21.0-31.0) 10/23/18 07:53 Anion Gap 9.6 (7.0-16.0) 10/23/18 07:53 BUN 9 mg/dL (7-25) 10/23/18 07:53 Creatinine 0.6 mg/dL (0.6-1.2) 10/23/18 07:53 Est GFR ( Amer) TNP 10/23/18 07:53 Est GFR (Non-Af Amer) TNP 10/23/18 07:53 BUN/Creatinine Ratio 15.0 10/23/18 07:53 Glucose 128 mg/dL (70-105) H 10/23/18 07:53 POC Glucose 108 MG/DL (70 - 105) H 10/20/18 17:31 Calcium 9.6 mg/dL (8.6-10.3) 10/23/18 07:53 Total Bilirubin 0.6 mg/dL (0.3-1.0) 10/21/18 05:15 AST 10 U/L (13-39) L 10/21/18 05:15 ALT 9 U/L (7-52) 10/21/18 05:15 Alkaline Phosphatase 65 U/L (34-104) 10/21/18 05:15 Troponin I < 0.01 ng/mL (0.01-0.05) L 10/20/18 15:45 B-Natriuretic Peptide 39.5 pg/mL (5.0-100.0) 10/20/18 15:45 Total Protein 5.9 gm/dL (6.0-8.3) L 10/21/18 05:15 Albumin 3.2 gm/dL (3.7-5.3) L 10/21/18 05:15 Globulin 2.7 gm/dL 10/21/18 05:15 Albumin/Globulin Ratio 1.2 (1.0-1.8) 10/21/18 05:15 Triglycerides 207 mg/dL (<150) H 10/20/18 15:45 Cholesterol 184 mg/dL (<200) 10/20/18 15:45 LDL Cholesterol Direct 108 mg/dL (75-193) 10/20/18 15:45 HDL Cholesterol 44 mg/dL (23-92) 10/20/18 15:45 TSH 2.32 uIU/ml (0.34-5.60) 10/20/18 15:45 Urine Source CLEAN C 10/20/18 17:30 Urine Color YELLOW 10/20/18 17:30 Urine Clarity CLEAR (CLEAR) 10/20/18 17:30 Urine pH 6.5 (4.6 - 8.0) 10/20/18 17:30 Ur Specific [place] 1.010 (1.005-1.030) 10/20/18 17:30 Urine Protein NEGATIVE mg/dL (NEGATIVE) 10/20/18 17:30 Urine Glucose (UA) NEGATIVE mg/dL (NEGATIVE) 10/20/18 17:30 Urine Ketones NEGATIVE mg/dL (NEGATIVE) 10/20/18 17:30 Urine Blood NEGATIVE (NEGATIVE) 10/20/18 17:30 Urine Nitrate NEGATIVE (NEGATIVE) 10/20/18 17:30 Urine Bilirubin NEGATIVE (NEGATIVE) 10/20/18 17:30 Urine Urobilinogen 0.2 E.U./dL (0.2 - 1.0) 10/20/18 17:30 Ur Leukocyte Esterase SMALL (NEGATIVE) H 10/20/18 17:30 Urine RBC 0-2 /hpf (0-5) 10/20/18 17:30 Urine WBC 2-5 /hpf (0-5) 10/20/18 17:30 Ur Epithelial Cells MODERATE /lpf (FEW) 10/20/18 17:30 Urine Bacteria 1+ /hpf (NONE SEEN) H 10/20/18 17:30 Urine Opiates Screen NEGATIVE (NEGATIVE) 10/20/18 17:30 Urine Methadone Screen NEGATIVE (NEGATIVE) 10/20/18 17:30 Ur Barbiturates Screen NEGATIVE (NEGATIVE) 10/20/18 17:30 Ur Tricyclics Screen NEGATIVE (NEGATIVE) 10/20/18 17:30 Ur Phencyclidine Scrn NEGATIVE (NEGATIVE) 10/20/18 17:30 Amphetamines Screen NEGATIVE (NEGATIVE) 10/20/18 17:30 U Methamphetamines Scrn NEGATIVE (NEGATIVE) 10/20/18 17:30 U Benzodiazepines Scrn NEGATIVE (NEGATIVE) 10/20/18 17:30 U Cocaine Metab Screen NEGATIVE (NEGATIVE) 10/20/18 17:30 U Cannabinoids Screen NEGATIVE (NEGATIVE) 10/20/18 17:30 - Physical Exam Vitals and I&O: Vital Signs Temp 97.5 F 10/24/18 11:51 Pulse 81 10/24/18 11:51 Resp 18 10/24/18 12:02 BP 151/80 10/24/18 11:51 Pulse Ox 96 10/24/18 11:51 Intake & Output 10/23/18 10/24/18 10/24/18 18:59 06:59 18:59 Intake Total 931.667 918.333 Output Total 4 Balance 931.667 914.333 Weight (lbs) 74.026 kg 74.616 kg Intake: Intake, IV Amount 81.667 918.333 D5-0.45NS 1,000 ml @ 100 81.667 918.333 mls/hr IV .Q10H YARITZA Rx#: [id number] Oral 850 Output: Urine 4 Other: # Voids 5 # Bowel Movements 0 0 Weight Source Bedscale Bedscale Active Medications: Current Medications Acetaminophen (Tylenol) 650 mg PO Q6HR PRN PRN Reason: Pain (Mild) Stop: 12/20/18 09:22 Last Admin: 10/23/18 22:19 Dose: 650 mg Carvedilol (Coreg) 12.5 mg PO BID [facility] Stop: 12/20/18 16:59 Last Admin: 10/24/18 08:21 Dose: 12.5 mg Guaifenesin (Robitussin) 200 mg PO TID PRN PRN Reason: Cough or Congestion Stop: 12/22/18 08:33 Last Admin: 10/23/18 23:54 Dose: 200 mg Dextrose/Sodium Chloride (D5-0.45ns) 1,000 mls @ 100 mls/hr IV .Q10H YARITZA Stop: 12/19/18 17:39 Last Admin: 10/24/18 13:15 Dose: 100 mls/hr Spironolactone (Aldactone) 25 mg PO BID YARITZA Stop: 12/20/18 16:59 Last Admin: 10/24/18 08:21 Dose: 25 mg General: No acute distress Neck: Supple, JVD, +2 carotid pulse wo bruit (flat) Cardiovascular: Regular rate, Normal S1, Normal S2, Systolic murmurs Lungs: Clear to auscultation, Normal air movement Abdomen: Bowel sounds, Soft, Other (no organomegaly) Extremities: Pulses (normal) Neurological: Strength at 5/5 X4 ext, Cranial nerves 3-12 NL, Reflexes 2+ Assessment/Plan - Assessment Assessment: Syncope Hypertension Coronary artery disease Anxiety Congestive heart failure diastolic dysfunction and chronic Osteoporosis - Plan Plan: Discharge planning
--- NOTE | 2018-10-24 14:57 | Cardiology ---
10/23/2018 PATIENT OF: Dr. Friedman. M-MODE ECHOCARDIOGRAM: Mitral valve, anterior leaflet of mitral valve shows normal excursion, EF velocity. Posterior leaflet of the mitral valve shows normal excursion. Left ventricular posterior wall showed normal thickness, excursion. Interventricular septum showed normal thickness, excursion. Ejection fraction 66%. Left atrium normal. Aortic root shows normal dimension, normal excursion of aortic leaflets. CONCLUSION: Normal M-mode echo, ejection fraction 66%. 2D ECHO: Long axis view showed normal sized left ventricle with normal wall motion, mitral valve shows normal excursion. Left atrium normal. Aortic root shows normal dimension, normal excursion of aortic leaflets. Short axis view of mitral valve normal. Short axis view of aortic valve normal. Apical four chamber view showed normal sized left ventricle, left atrium, right ventricle, right atrium, tricuspid valve, mitral valve, ejection fraction 66%. CONCLUSION: Normal 2D echo, ejection fraction 66% with minimal hypertrophy of the left ventricle. Doppler study shows moderate mitral regurgitation, moderate tricuspid regurgitation, right ventricular systolic pressure 42 mmHg with mild pulmonary hypertension. [facility]# [id number]
== END 2018-10-24 15:30 | DRG 177 ==
LOC: ER 15:13 → TELE 16:45
PROVIDERS: ADMIT Internal Medicine; ATTEND Internal Medicine
DX: J69.0 Pneumonitis due to inhalation of food and vomit (principal); G93.41 Metabolic encephalopathy; N39.0 Urinary tract infection, site not specified; I11.0 Hypertensive heart disease with heart failure; I50.9 Heart failure, unspecified; J44.9 Chronic obstructive pulmonary disease, unspecified; E78.5 Hyperlipidemia, unspecified; E66.9 Obesity, unspecified; R29.6 Repeated falls; I25.10 Atherosclerotic heart disease of native coronary artery without angina pectoris; F41.9 Anxiety disorder, unspecified; M81.0 Age-related osteoporosis without current pathological fracture; Z68.30 Body mass index [BMI] 30.0-30.9, adult; Z88.0 Allergy status to penicillin
CPT/HCPCS: 36415-UA; 70450-TC; 71045-TC; 80048-TC; 80053-TC; 80061-TC; 80307; 81001-TC; 82948-90; 83880-TC; 84443-TC; 84484-TC; 85025-TC; 85610-TC; 85730-TC; 93005; 94760; 95816-TC; J1956; J7030; Z7610

== ENCOUNTER 2018-12-05 20:09 | Inpatient (IN) | payer MEDICARE, MEDICAID ==
--- NOTE | 2018-12-05 20:32 | ED Physician Chart ---
ED Chief Complaint/HPI - Patient Information Date Seen:: 12/05/18 Time Seen:: 20:32 Chief Complaint:: Right hip pain History of Present Illness:: 83 yo female was brought from [facility] to ER for intermittent lateral right hip pain for 6 weeks. Pt was unable to ambulate and had been wheelchair bound. Allergies:: Allergies Allergy/AdvReac Type Severity Reaction Status Date / Time Penicillins [PCN] Allergy Verified 10/04/18 12:48 Vitals:: Vital Signs - 8 hr 12/05/18 20:14 Temp 96.8 F HR 107 RR 16 BP 144/67 O2 Sat % 94 ED Review of Systems - Review of Systems General/Constitutional: No fever, No chills Skin: No rash Head: No headache Eyes: No pain ENT: No earache Neck: No neck pain Cardio Vascular: No chest pain Pulmonary: No SOB GI: No nausea, No vomiting Musculoskeletal: Bone or joint pain Neurological: No focal symptoms, No headache ED Past Medical History - Past Medical History Past Medical History: HTN, CHF, Asthma/COPD, Dyslipidemia, Other (MUSCLE WASTING AND ATROPHY, SYNCOPE, OSTEOPOROSIS) Social History: Non Smoker, No Alcohol, No Drug Use Family Medical History - Family Member Mother History Unknown: Yes ED Physical Exam - Physical Examination General/Constitutional: Awake, Alert Head: Atraumatic Eyes: PERRL Skin: No skin lesions ENMT: Nasal exam nl Neck: No nuchal rigidity Respiratory: Clear to Auscultation Cardio Vascular: RRR, No murmur, gallop, rubs, NL S1 S2 GI: No tenderness/rebounding/guarding Other Extremities comments:: Right lateral hip tenderness with painful ROM. Neuro/Psych: No focal deficits ED Labs/Radiology/EKG Results - Lab Results Results: Lab Results 12/05/18 12/05/18 12/05/18 Range/Units 20:45 20:45 20:45 WBC 10.2 (4.8-10.8) Th/cmm RBC 4.34 (3.80-5.20) Mil/cmm Hgb 13.0 (12-16) gm/dL Hct 36.9 L (41.0-60) % MCV 85.0 (81-100) fl MCH 29.9 (27.0-31.0) pg MCHC Differential 35.1 (28.0-36.0) pg RDW 13.2 (11.5-20.0) % Plt Count 401 H (150-400) Th/cmm MPV 7.1 fl Neutrophils % 59.9 (40.0-80.0) % Lymphocytes % 25.5 (20.0-50.0) % Monocytes % 11.8 H (2.0-10.0) % Eosinophils % 1.9 (0.0-5.0) % Basophils % 0.9 (0.0-2.0) % PT 9.6 (9.5-11.5) SECONDS INR 0.92 (0.5-1.4) PTT (Actin FS) 24.3 L (26.0-38.0) SECONDS Sodium 130 L (136-145) mEq/L Potassium 4.2 (3.5-5.1) mEq/L Chloride 96 L (98-107) mEq/L Carbon Dioxide 28.0 (21.0-31.0) mEq/L Anion Gap 10.2 (7.0-16.0) BUN 14 (7-25) mg/dL Creatinine 0.7 (0.6-1.2) mg/dL Est GFR ( Amer) TNP Est GFR (Non-Af Amer) TNP BUN/Creatinine Ratio 20.0 Glucose 121 H (70-105) mg/dL Calcium 10.2 (8.6-10.3) mg/dL Total Bilirubin 0.2 L (0.3-1.0) mg/dL AST 12 L (13-39) U/L ALT 11 (7-52) U/L Alkaline Phosphatase 67 (34-104) U/L Total Protein 6.4 (6.0-8.3) gm/dL Albumin 3.3 L (3.7-5.3) gm/dL Globulin 3.1 gm/dL Albumin/Globulin Ratio 1.1 (1.0-1.8) Urine Source Urine Color Urine Clarity (CLEAR) Urine pH (4.6 - 8.0) Ur Specific [place] (1.005-1.030) Urine Protein (NEGATIVE) mg/dL Urine Glucose (UA) (NEGATIVE) mg/dL Urine Ketones (NEGATIVE) mg/dL Urine Blood (NEGATIVE) Urine Nitrate (NEGATIVE) Urine Bilirubin (NEGATIVE) Urine Urobilinogen (0.2 - 1.0) E.U./dL Ur Leukocyte Esterase (NEGATIVE) 12/05/18 Range/Units 21:31 WBC (4.8-10.8) Th/cmm RBC (3.80-5.20) Mil/cmm Hgb (12-16) gm/dL Hct (41.0-60) % MCV (81-100) fl MCH (27.0-31.0) pg MCHC Differential (28.0-36.0) pg RDW (11.5-20.0) % Plt Count (150-400) Th/cmm MPV fl Neutrophils % (40.0-80.0) % Lymphocytes % (20.0-50.0) % Monocytes % (2.0-10.0) % Eosinophils % (0.0-5.0) % Basophils % (0.0-2.0) % PT (9.5-11.5) SECONDS INR (0.5-1.4) PTT (Actin FS) (26.0-38.0) SECONDS Sodium (136-145) mEq/L Potassium (3.5-5.1) mEq/L Chloride (98-107) mEq/L Carbon Dioxide (21.0-31.0) mEq/L Anion Gap (7.0-16.0) BUN (7-25) mg/dL Creatinine (0.6-1.2) mg/dL Est GFR ( Amer) Est GFR (Non-Af Amer) BUN/Creatinine Ratio Glucose (70-105) mg/dL Calcium (8.6-10.3) mg/dL Total Bilirubin (0.3-1.0) mg/dL AST (13-39) U/L ALT (7-52) U/L Alkaline Phosphatase (34-104) U/L Total Protein (6.0-8.3) gm/dL Albumin (3.7-5.3) gm/dL Globulin gm/dL Albumin/Globulin Ratio (1.0-1.8) Urine Source CLEAN C Urine Color YELLOW Urine Clarity CLEAR (CLEAR) Urine pH 5.5 (4.6 - 8.0) Ur Specific [place] <= 1.005 (1.005-1.030) Urine Protein NEGATIVE (NEGATIVE) mg/dL Urine Glucose (UA) NEGATIVE (NEGATIVE) mg/dL Urine Ketones NEGATIVE (NEGATIVE) mg/dL Urine Blood NEGATIVE (NEGATIVE) Urine Nitrate NEGATIVE (NEGATIVE) Urine Bilirubin NEGATIVE (NEGATIVE) Urine Urobilinogen 0.2 (0.2 - 1.0) E.U./dL Ur Leukocyte Esterase NEGATIVE (NEGATIVE) - Radiology Results Results: CT pelvis wo contrast: 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 Is Septic Shock (SBP<90, OR Lactate>4 mmol\L) present?: No - <6hrs of presentation: Vital Signs: Vital Signs - 8 hr 12/05/18 20:14 Temp 96.8 F HR 107 RR 16 BP 144/67 O2 Sat % 94 ED Reassessment (Disposition) - Reassessment Reassessment Condition:: Improved - Patient Disposition Discharge/Transfer:: Acute Care w/in this hosp Admitting Medical Physician:: Keenan Friedman
[2018-12-05 21:00] LABS: % BASOPHILS 0.9 % (0.0-2.0); % EOSINOPHILS 1.9 % (0.0-5.0); % LYMPHOCYTES 25.5 % (20.0-50.0); % MONOCYTES 11.8 % (2.0-10.0); % NEUTROPHILS 59.9 % (40.0-80.0); BASOPHILE ABSOLUTE 0.1 Th/cumm (0-0.2); EOSINOPHILE ABSOLUTE 0.2 Th/cmm (0.1-0.4); HEMATOCRIT 36.9 % (41.0-60); LYMPHOCYTE ABSOLUTE 2.6 Th/cmm (1.5-3.0); MEAN CORPUSCULAR HEMOGLOBIN 29.9 pg (27.0-31.0); MEAN CORPUSCULAR HGB CONC 35.1 pg (28.0-36.0); MONOCYTE ABSOLUTE 1.2 Th/cmm (0.3-1.0); NEUTROPHILE ABSOLUTE 6.1 Th/cmm (1.8-8.0); PLATELET COUNT 401 Th/cmm (150-400); RED BLOOD COUNT 4.34 Mil/cmm (3.80-5.20); RED CELL DISTRIBUTION WIDTH 13.2 % (11.5-20.0); WHITE BLOOD COUNT 10.2 Th/cmm (4.8-10.8)
[2018-12-05 21:12] LABS: ALB/GLOB RATIO 1.1 (1.0-1.8); ALBUMIN 3.3 gm/dL (3.7-5.3); ALKALINE PHOSPHATASE 67 U/L (34-104); ANION GAP 10.2 (7.0-16.0); BILIRUBIN,TOTAL 0.2 mg/dL (0.3-1.0); BUN - UREA NITROGEN 14 mg/dL (7-25); CALCIUM SERUM 10.2 mg/dL (8.6-10.3); CHLORIDE 96 mEq/L (98-107); CREATININE - SERUM 0.7 mg/dL (0.6-1.2); GLUCOSE 121 mg/dL (70-105); POTASSIUM SERUM 4.2 mEq/L (3.5-5.1); SGOT 12 U/L (13-39); SGPT/ALT 11 U/L (7-52); SODIUM SERUM 130 mEq/L (136-145); TOTAL PROTEIN,SERUM 6.4 gm/dL (6.0-8.3)
[2018-12-05 21:17] LABS: INR 0.92 (0.5-1.4)
[2018-12-05] MEDS ORDERED: Sodium Chloride 0.9% 1,000 ML IV ONE (21:50)
[2018-12-05 22:37] LABS: URINE SOURCE CLEAN C
[2018-12-05 22:38] LABS: URINE BILIRUBIN NEGATIVE (NEGATIVE); URINE BLOOD NEGATIVE (NEGATIVE); URINE GLUCOSE (UA) NEGATIVE (NEGATIVE); URINE KETONE NEGATIVE (NEGATIVE); URINE LEUKOCYTE ESTERASE NEGATIVE (NEGATIVE); URINE NITRATE NEGATIVE (NEGATIVE); URINE PH 5.5 (4.6 - 8.0); URINE PROTEIN NEGATIVE (NEGATIVE); URINE UROBILINOGEN 0.2 E.U./dL (0.2 - 1.0)
[2018-12-05 22:42] LABS: URINE CLARITY CLEAR (CLEAR); URINE COLOR YELLOW; URINE MICROSCOPIC INDICATED? NO
[2018-12-06 01:41] VITALS: BP 116/59
[2018-12-06] MEDS ORDERED: Maalox 30 mL Cup PO PRN (04:01)
[2018-12-06] MEDS ORDERED: D5-0.45NS 1,000 ML IV SCH (05:00)
[2018-12-06 07:02] LABS: ALB/GLOB RATIO 1.1 (1.0-1.8); ALKALINE PHOSPHATASE 61 U/L (34-104); ANION GAP 8.5 (7.0-16.0); BILIRUBIN,TOTAL 0.3 mg/dL (0.3-1.0); BUN - UREA NITROGEN 11 mg/dL (7-25); CALCIUM SERUM 9.7 mg/dL (8.6-10.3); CARBON DIOXIDE 25.3 mEq/L (21.0-31.0); CHLORIDE 102 mEq/L (98-107); CHOLESTEROL 150 mg/dL (<200); CREATININE - SERUM 0.6 mg/dL (0.6-1.2); GLUCOSE 112 mg/dL (70-105); HDL -HIGH DENSITY LIPOPROTEIN 38 mg/dL (23-92); POTASSIUM SERUM 3.8 mEq/L (3.5-5.1); SGOT 11 U/L (13-39); SGPT/ALT 11 U/L (7-52); SODIUM SERUM 132 mEq/L (136-145); TOTAL PROTEIN,SERUM 5.8 gm/dL (6.0-8.3); TRIGLYCERIDES 132 mg/dL (<150)
[2018-12-06] MEDS ORDERED: Potassium Chloride 20 mEq ER Tab PO SCH (09:00)
--- NOTE | 2018-12-06 10:36 | Diagnostic Imaging Report ---
CT scan of the pelvis HISTORY: Right hip pain Total DLP equals 363 CTDI equals 11.5 Axial sections were obtained from the iliac crest down to the pubic symphysis. The exam of the right hip demonstrates severe joint space narrowing. Subcortical cyst formation noted along the articular surfaces reflecting degenerative change. Hypertrophic bony changes noted along the acetabulum. No acute abnormalities. No fractures. Severe degenerative change with joint space narrowing noted about the left hip. Irregularity and subcortical cystic changes also seen. Degenerative changes seen within the visualized lower lumbar spine along with mild spondylolisthesis of L4 on L5. Incidentally noted are changes of diverticulosis within the colon. IMPRESSION: 1. No acute abnormalities 2. Severe degenerative changes about the hips 3. Degenerative changes within the lower lumbar spine with anterolisthesis of L4 on L5. 4. Diverticulosis
--- NOTE | 2018-12-06 10:50 | Diagnostic Imaging Report ---
Right hip (2 views) HISTORY: Pain Severe degenerative change with virtual complete obliteration of the joint space. Irregularity with subcortical cyst formation noted. Hypertrophic changes noted off the lateral aspect of the right acetabulum. No definite acute bony abnormalities. Severe degenerative changes with marked narrowing noted about the left hip. IMPRESSION: 1. Severe degenerative changes 2. No definite acute abnormalities
--- NOTE | 2018-12-06 12:13 | History and Physical ---
History of Present Illness - HPI Chief Complaint: 83 y/o female patient was brought into ER due to complaints of Right hip pain. HPI: 83 y/o female patient was admitted to [facility] due to complaints of Lateral Right hip pain x 6 weeks. Patient is unable to ambulate and has been wheelchair bound. Patient has history of Asthma, Copd, Htn, CHF, Dyslipidemia, Muscle wasting and Atrophy, Syncope and Osteoporosis. Patient had an ER assessment and a complete workup was done. Patient had a Ct scan of the Right hip performed which showed Severe degenerative changes about the hips, Degenerative changes within the lower lumbar spine along with mild spondylolisthesis of L4 on L5 and Diverticulosis. Patient was diagnosed with Patient will have an Ortho consult. I will follow, teat and monitor patient. Patient will continue current treatment plan as ordered. Vital Signs: Last Vital Signs Temp 96.7 F 12/06/18 11:50 Pulse 66 12/06/18 11:50 Resp 18 12/06/18 11:50 BP 98/67 12/06/18 11:50 Pulse Ox 97 12/06/18 11:50 Past Medical History Cardiovascular: Report: CHF, HTN Pulmonary: Report: Asthma, COPD [employer]: Report: No Pertinent Hx GI: Report: No Pertinent Hx Psych: Report: No Pertinent Hx Musculoskeletal: Report: Muscle Atrophy, Other (pain of right hip.) Rheumatologic: Report: No pertinent Hx Infectious Disease: Report: No Pertinent Hx Renal/: Report: No Pertinent Hx Endocrine: Report: Osteoporosis Dermatology: Report: No Pertinent Hx - Past Surgical History Past Surgical History: No pertinent Hx Family Medical History - Family Member Mother History Unknown: Yes Social History Smoke: No Alcohol: None Drugs: None Lives: Long-Term Domestic Violence: Negative Health Maintenance Health Maintenance: Other (see chart.) - Medications Home Medications: Home Medication Medication Instructions Recorded Type Acetaminophen [Tylenol] 650 mg PO Q6HR PRN 12/05/18 History Al Hyd/Mg Hyd/Simethicone [Maalox] 30 ml PO Q6HR PRN 12/05/18 History Alendronate Sodium [Fosamax] 70 mg PO QTUE 12/05/18 History Carvedilol 12.5 mg PO BID 12/05/18 History Clonidine HCl [Catapres] 0.1 mg PO Q12H PRN 12/05/18 History Ergocalciferol [Vitamin D2] 50,000 iu PO QSUN 12/05/18 History Potassium Chloride ER [Klor-Con] 20 meq PO DAILY 12/05/18 History Spironolactone 25 mg PO BID 12/05/18 History Other Medications: please see medication reconciliation sheet. - Allergies Allergies/Adverse Reactions: Allergies Allergy/AdvReac Type Severity Reaction Status Date / Time Penicillins [PCN] Allergy Verified 10/04/18 12:48 Review of Systems - Review of Systems Review of Systems: Patient is complaining of right hip pain. Constitutional: Report: No Significant Eyes: Report: No Significant ENT: Report: No Significant Respiratory: Report: No Significant Cardiovascular: Report: No Significant Gastrointestinal: Report: No Significant Genitourinary: Report: No Significant Musculoskeletal: Report: Other (Right hip pain.) Skin: Report: No Significant Neurological: Report: No Significant Physical Exam - Physical Exam HEENT: Report: Ears Nose Throat within normal limits Neck: Report: Within normal limits Cardiovascular Systems: Report: +s1/s2 noted, Regular, Rate and Rhythm Respiratory: Report: Breath Sounds are within normal limits Abdomen: Report: Non-tender to palpation Back: Report: Inspection of back is within normal limits. Extremities: Report: Other (Right hhip pain with rom.) Skin: Report: Color of skin is within normal limits Neuro/Psych: Report: Mood affect is within normal limits - Lab Results All Lab Results last 24 hours: Laboratory Results - last 24 hr 12/05/18 12/05/18 12/05/18 20:45 20:45 20:45 WBC 10.2 RBC 4.34 Hgb 13.0 Hct 36.9 L MCV 85.0 MCH 29.9 MCHC Differential 35.1 RDW 13.2 Plt Count 401 H MPV 7.1 Neutrophils % 59.9 Lymphocytes % 25.5 Monocytes % 11.8 H Eosinophils % 1.9 Basophils % 0.9 PT 9.6 INR 0.92 PTT (Actin FS) 24.3 L Sodium 130 L Potassium 4.2 Chloride 96 L Carbon Dioxide 28.0 Anion Gap 10.2 BUN 14 Creatinine 0.7 Est GFR ( Amer) TNP Est GFR (Non-Af Amer) TNP BUN/Creatinine Ratio 20.0 Glucose 121 H Calcium 10.2 Total Bilirubin 0.2 L AST 12 L ALT 11 Alkaline Phosphatase 67 Total Protein 6.4 Albumin 3.3 L Globulin 3.1 Albumin/Globulin Ratio 1.1 Triglycerides Cholesterol LDL Cholesterol Direct HDL Cholesterol Urine Source Urine Color Urine Clarity Urine pH Ur Specific [place] Urine Protein Urine Glucose (UA) Urine Ketones Urine Blood Urine Nitrate Urine Bilirubin Urine Urobilinogen Ur Leukocyte Esterase 12/05/18 12/06/18 21:31 06:00 WBC RBC Hgb Hct MCV MCH MCHC Differential RDW Plt Count MPV Neutrophils % Lymphocytes % Monocytes % Eosinophils % Basophils % PT INR PTT (Actin FS) Sodium 132 L Potassium 3.8 Chloride 102 Carbon Dioxide 25.3 Anion Gap 8.5 BUN 11 Creatinine 0.6 Est GFR ( Amer) TNP Est GFR (Non-Af Amer) TNP BUN/Creatinine Ratio 18.3 Glucose 112 H Calcium 9.7 Total Bilirubin 0.3 AST 11 L ALT 11 Alkaline Phosphatase 61 Total Protein 5.8 L Albumin 3.0 L Globulin 2.8 Albumin/Globulin Ratio 1.1 Triglycerides 132 Cholesterol 150 LDL Cholesterol Direct 100 HDL Cholesterol 38 Urine Source CLEAN C Urine Color YELLOW Urine Clarity CLEAR Urine pH 5.5 Ur Specific [place] <= 1.005 Urine Protein NEGATIVE Urine Glucose (UA) NEGATIVE Urine Ketones NEGATIVE Urine Blood NEGATIVE Urine Nitrate NEGATIVE Urine Bilirubin NEGATIVE Urine Urobilinogen 0.2 Ur Leukocyte Esterase NEGATIVE - Assessment Assessment: Right hip pain. Asthma. Copd. Htn. CHF. Dyslipidemia. Muscle wasting and Atrophy. Syncope. Osteoporosis. - Plan Plan: Continuation of care. Monitor Labs. Continue present meds as directed. Monitor vitals, Continue BP meds as directed. Respiratory treatments and Pulmonary support prn. Supplemental Oxygen prn. Aspiration precaution. Deep suctioning prn. Monitor Diet/Nutritional support. Pain Management. Physical therapy. Occupational therapy. Fall precaution, frequent nursing rounds, and as needed restraints to prevent fall. Safety precaution. Supportive care. Continue collaborating with consulting specialists, case management and nursing team. Will Monitor patient and continue current treatment plan as ordered.
--- NOTE | 2018-12-17 21:52 | Discharge Summary ---
DATE OF DISCHARGE: 12/06/2018 HOSPITAL COURSE: The patient was admitted on 12/06/2018 with multiple problems including obstipation, pneumonia, asthma, right hip pain, CHF, syncope, osteoporosis. Previously, all of them were addressed. The patient was given IV antibiotic and bronchodilator. The patient improved. The patient is in stable condition, discharged back to [place]. FINAL DIAGNOSES: 1. Pneumonia, improving. 2. Right hip pain, improved. The patient's condition at time of discharge is stable and I will be following the patient in [place]. JOB# [id number]
== END 2018-12-06 17:45 | DRG 193 ==
LOC: ER 20:09 → MSI 12-06 01:04
PROVIDERS: ADMIT Internal Medicine; ATTEND Internal Medicine
DX: J18.9 Pneumonia, unspecified organism (principal); R53.2 Functional quadriplegia; E87.1 Hypo-osmolality and hyponatremia; M16.11 Unilateral primary osteoarthritis, right hip; J44.9 Chronic obstructive pulmonary disease, unspecified; R55 Syncope and collapse; M81.0 Age-related osteoporosis without current pathological fracture; I50.9 Heart failure, unspecified; I11.0 Hypertensive heart disease with heart failure; E78.5 Hyperlipidemia, unspecified; E86.0 Dehydration; M43.16 Spondylolisthesis, lumbar region; K57.30 Diverticulosis of large intestine without perforation or abscess without bleeding; M62.50 Muscle wasting and atrophy, not elsewhere classified, unspecified site; Z99.3 Dependence on wheelchair; Z88.0 Allergy status to penicillin
CPT/HCPCS: 36415-UA; 72192-TC; 73501; 80053-TC; 80061-TC; 81003-TC; 85025-TC; 85610-TC; J7030